=== PATIENT | female | born 1985 | race Caucasian/White ===

== ENCOUNTER 2016-07-27 11:29 | Outpatient (CLI) | payer MEDICAID ==
--- NOTE | 2016-07-27 12:00 | L&D Flow Sheet ---
LD Flowsheet Datetime Report Generated by CPN: 07/27/2016 12:00 Datetime: 07/27/2016 11:43 Vital Signs NBP Sys/Tala/Mean (mmHg): 117 (QS system process) : 75 (QS system process) : 89 (QS system process) Pulse: 103 (QS system process)
--- NOTE | 2016-07-27 12:24 | Non Stress Test Report ---
Non Stress Test Datetime Report Generated by CPN: 07/27/2016 12:24 INDICATION Indication for Study: Diabetes Mellitus Indication for Study: Ordered by Provider MONITORING Monitor Explained: Monitor Explained; Test Explained; Patient Verbalized Understanding Monitor Explained: Monitor Explained; Test Explained; Patient Verbalized Understanding Time on Monitor: 07/27/2016 11:41 Time off Monitor: 07/27/2016 12:07 NST Duration: 26 NST INTERVENTIONS NST Interventions: PO Hydration; Reposition Patient Physician Notified NST: C Salomon CNM BABY A: [id number] BABY A Movement : Present Contraction Frequency : none FHR Baseline : 135 Accelerations : 15X15 Accelerations : 15X15 Decelerations : None Decelerations : None Variability : Moderate 6-25bpm Variability : Moderate 6-25bpm NST Review: Meets Criteria for Reactive NST NST Review and Verified By : D Bellavance RNC NST Results: Reactive NST REPORT Report Trigger: Send Report
== END 2016-07-27 12:13 | disposition home or self-care (01) ==
LOC: LC 11:29
PROVIDERS: ATTEND Obstetrics & Gynecology
PROC: 4A1HXCZ Monitoring of Products of Conception, Cardiac Rate, External Approach (ICD-10-PCS; principal; 2016-07-27)
DX: O24.913 Unspecified diabetes mellitus in pregnancy, third trimester (principal); Z79.4 Long term (current) use of insulin; Z3A.36 36 weeks gestation of pregnancy
CPT/HCPCS: 59025

== ENCOUNTER 2016-07-31 14:08 | Outpatient (CLI) | payer MEDICAID ==
[2016-07-31 14:43] LABS: APPEARANCE,URINE CLOUDY; BILIRUBIN,URINE NEGATIVE (NEGATIVE); GLUCOSE, URINE 50 mg/dL (NEGATIVE); KETONES,URINE TRACE mg/dL (NEGATIVE); LEUKOCYTE ESTERASE,URINE MODERATE (NEGATIVE); NITRITE,URINE NEGATIVE (NEGATIVE); PROTEIN,URINE 30 mg/dL (NEGATIVE); URINE SPECIFIC GRAVITY 1.019; UROBILINOGEN,URINE NEGATIVE mg/dL (<2.0)
[2016-07-31] MEDS ORDERED: BUTALB/ACETAMINOPHEN/CAFFEINE 1 TAB EACH PO ONE (15:01)
[2016-07-31 15:03] LABS: URINE BARBITURATES SCREEN NEGATIVE; URINE METHADONE SCREEN NEGATIVE; URINE OPIATES LOW NEGATIVE; URINE PHENCYCLIDINE SCREEN NEGATIVE
[2016-07-31] MEDS ORDERED: BUTALB/ACETAMINOPHEN/CAFFEINE 1 TAB EACH ONE (15:03)
[2016-07-31 15:04] LABS: ABSOLUTE LYMPHOCYTES (AUTO) 1.4 10^3/uL (0.5-4.7); ABSOLUTE MONOCYTES (AUTO) 0.6 10^3/uL (0.1-1.4); ABSOLUTE NEUT (AUTO) 10.6 10^3/uL (1.7-8.2); BASOPHILS % (AUTO) 0.2 % (0-2); EOSINOPHILS % (AUTO) 0.4 % (0-6); HEMATOCRIT 32.6 % (36.0-47.0); HEMOGLOBIN 10.6 g/dL (12.0-15.5); HGB HCT DIFFERENCE -0.8; LYMPHOCYTES % (AUTO) 11.1 % (13-45); MEAN CORPUSCULAR HEMOGLOBIN 26.2 pg (27.0-33.4); MEAN CORPUSCULAR HGB CONC 32.6 g/dL (32.0-36.0); MEAN CORPUSCULAR VOLUME 80 fl (80-97); MONOCYTES % (AUTO) 4.9 % (3-13); RED BLOOD COUNT 4.07 10^6/uL (3.72-5.28); RED CELL DISTRIBUTION WIDTH 14.8 % (11.5-14.0); SEGMENTED NEUTROPHILS % (AUTO) 83.4 % (42-78); WHITE BLOOD COUNT 12.8 10^3/uL (4.0-10.5)
[2016-07-31 15:17] LABS: ALANINE AMINOTRANSFERASE 26 U/L (9-52); ALBUMIN 3.3 g/dL (3.5-5.0); ALKALINE PHOSPHATASE 164 U/L (38-126); ANION GAP 10 (5-19); ASPARTATE AMINO TRANSFERASE 15 U/L (14-36); BILIRUBIN,TOTAL 0.3 mg/dL (0.2-1.3); BLOOD UREA NITROGEN 6 mg/dL (7-20); CARBON DIOXIDE 19 mmol/L (22-30); CHLORIDE 108 mmol/L (98-107); CREATININE RESULT 0.42 mg/dL (0.52-1.25); GLUCOSE 92 mg/dL (75-110); LDH 429 U/L (313-618); POTASSIUM 4.2 mmol/L (3.6-5.0); SODIUM 136.6 mmol/L (137-145); TOTAL PROTEIN 6.5 g/dL (6.3-8.2); URIC ACID 2.9 mg/dL (2.5-6.2)
--- NOTE | 2016-07-31 16:01 | L&D Flow Sheet ---
LD Flowsheet Datetime Report Generated by CPN: 07/31/2016 16:00 Datetime: 07/31/2016 15:33 Comments: EFM off for discharge to home, see discharge summary (Julia Camp, RNC) Datetime: 07/31/2016 15:30 Monitor Mode: External; Palpation (Julia Camp, RNC) Frequency (min): none (Julia Camp, RNC) Resting Tone (Palpate): Relaxed (Julia Camp, RNC) Monitor Mode: External US; Auscultation (Julia Camp, [facility]) FHR Baseline Rate : 135 ([facility], C) FHR Baseline Changes: No Baseline Change ([facility], [facility]) Variability: Moderate 6-25 bpm ([facility], RNC) Accelerations: 15X15 ([facility], RN) Decelerations: None ([facility], RN) Pain Scale: 1 ([place], RN) [facility] Pain Type: Pressure ([facility], [facility]) Pain Location: Head ([facility], [facility]) Pain Relief Measures: Pain Medication Given; Comfort Measures ([facility], [facility]) Pain Assessment Comments: states slight reduction in headache with po fioricet. States it is still there but slightly better ([facility], [facility]) Communication: Call/Page Placed to Provider ([facility], [facility]) Communication Comments: Phone report to Dr Sim, reviewed reactive efm tracing, vs, all labs. Report of continued mild headache 1 on 0-5 pain scale given. Discharge order received ([facility], [facility]) LaborFlag: Labor (QS system process) Datetime: 07/31/2016 15:19 NBP Sys/Tala/Mean (mmHg): 105 (QS system process) : 58 (QS system process) : 76 (QS system process) Pulse: 81 (QS system process) Respirations: 17 ([facility], [facility]) LaborFlag: Labor (QS system process) Datetime: 07/31/2016 15:10 Medication Comments: Fioricet 1 tab po given for headache (Julia Camp, RNC) Datetime: 07/31/2016 15:04 NBP Sys/Tala/Mean (mmHg): 103 (QS system process) : 59 (QS system process) : 78 (QS system process) Pulse: 90 (QS system process) Respirations: 16 (Julia Camp, RNC) LaborFlag: Labor (QS system process) Datetime: 07/31/2016 15:00 Monitor Mode: External; Palpation (Julia Camp, RNC) Frequency (min): denies (Julia Camp, RNC) Pattern: Normal: <= 5 Contractions in 10 Minutes (Julia Camp, RNC) Resting Tone (Palpate): Relaxed (Julia Camp, RNC) Monitor Mode: External US; Auscultation (Julia Camp, RNC) FHR Baseline Rate : 145 (Julia Camp, RNC) FHR Baseline Changes: No Baseline Change (Julia Camp, RNC) Variability: Moderate 6-25 bpm (Julia Camp, RNC) Accelerations: 15X15 (Julia Camp, RNC) Decelerations: None (Julia Camp, RNC) Datetime: 07/31/2016 14:50 NBP Sys/Tala/Mean (mmHg): 117 (QS system process) : 66 (QS system process) : 86 (QS system process) Pulse: 86 (QS system process) Respirations: 16 (Julia Camp, RNC) LaborFlag: Labor (QS system process) Datetime: 07/31/2016 14:48 Monitor Interventions for FHR: Ultrasound Adjusted (Julia Camp, RNC) IV/Blood Work: Labs Drawn (Julia Camp, RNC) Communication: RN at Bedside (Julia Camp, RNC) Datetime: 07/31/2016 14:35 Patient Position/Activity: HOB Lowered; Left Tilt (Julia Camp, RNC) Datetime: 07/31/2016 14:34 NBP Sys/Tala/Mean (mmHg): 121 (QS system process) : 70 (QS system process) : 90 (QS system process) Pulse: 85 (QS system process) Respirations: 16 (Julia Camp, RNC) LaborFlag: Labor (QS system process) Datetime: 07/31/2016 14:33 Patient Position/Activity: Semi-Fowlers (ALEJANDRO Bundy) I/O Interventions: Clear Liquids Given (ALEJANDRO Bundy) Patient Care Comments: initial b/p taken in semi fowlers position (Julia Allen RNC) Datetime: 07/31/2016 14:32 Instructional Method: Demo; Verbal (ALEJANDRO Bundy) Plan of Care: Plan of Care Discussed (ALEJANDRO Bundy) Unit Routine: [place] to Room; Call [place]; Bed; Monitoring (ALEJANDRO Bundy) Pain Management: Pain Scale/Goals (ALEJANDRO Bundy) Teaching Comments: POC reviewed for preeclampsia evaluation and nst process. Denies questions or concerns. (ALEJANDRO Bundy) Datetime: 07/31/2016 14:28 Pain Scale: 1 (ALEJANDRO Bundy) Pain Presence: Constant (ALEJANDRO Bundy) Pain Type: Dull (Julia Allen RNYousif) Pain Location: Head (Julia Allen RNC) Vaginal Bleeding: None (Julia Allen RNC) Level of Consciousness: Fully Conscious (Julia Allen RNC) DTR's/Clonus: DTRs 2+; No Clonus ([place], [facility]) Headache: Denies (Julia Allen, [facility]) Breath Sounds, Left: Clear and Equal (Julia Alejandro, [facility]) Breath Sounds, Right: Clear and Equal ([facility], [facility]) Nausea/Vomiting: Denies (Julia Allen, [facility]) RUQ Epigastric Pain: Denies (Julia Allen [facility]) LaborFlag: Labor (QS system process)
== END 2016-07-31 15:43 | disposition home or self-care (01) ==
LOC: LC 14:08
PROVIDERS: ATTEND Obstetrics & Gynecology
PROC: 4A1HXCZ Monitoring of Products of Conception, Cardiac Rate, External Approach (ICD-10-PCS; principal; 2016-07-31)
DX: O26.893 Other specified pregnancy related conditions, third trimester (principal); R51 Headache; Z3A.37 37 weeks gestation of pregnancy
CPT/HCPCS: 59025; 36415; 83615; 84550; 85025; 80053; 81001; 80307; J3490

== ENCOUNTER 2016-08-14 09:49 | Inpatient (IN) | payer MEDICAID ==
[2016-08-14] MEDS ORDERED: RINGERS SOLUTION,LACTATED 1,000 ML IV ONE (10:10)
[2016-08-14] MEDS ORDERED: OXYTOCIN/NORMAL SALINE 1,000 ML IV PRN ×2 (10:10→22:54)
[2016-08-14 10:53] LABS: APPEARANCE,URINE CLOUDY; BILIRUBIN,URINE NEGATIVE (NEGATIVE); GLUCOSE, URINE 50 mg/dL (NEGATIVE); KETONES,URINE TRACE mg/dL (NEGATIVE); LEUKOCYTE ESTERASE,URINE LARGE (NEGATIVE); NITRITE,URINE NEGATIVE (NEGATIVE); PROTEIN,URINE 30 mg/dL (NEGATIVE); URINE SPECIFIC GRAVITY 1.023; UROBILINOGEN,URINE NEGATIVE mg/dL (<2.0)
[2016-08-14 11:10] LABS: URINE BARBITURATES SCREEN NEGATIVE; URINE METHADONE SCREEN NEGATIVE; URINE OPIATES LOW NEGATIVE; URINE PHENCYCLIDINE SCREEN NEGATIVE
[2016-08-14 11:18] LABS: ABSOLUTE LYMPHOCYTES (AUTO) 1.2 10^3/uL (0.5-4.7); ABSOLUTE MONOCYTES (AUTO) 0.5 10^3/uL (0.1-1.4); ABSOLUTE NEUT (AUTO) 8.4 10^3/uL (1.7-8.2); BASOPHILS % (AUTO) 0.1 % (0-2); EOSINOPHILS % (AUTO) 0.3 % (0-6); HEMATOCRIT 31.3 % (36.0-47.0); HEMOGLOBIN 10.4 g/dL (12.0-15.5); HGB HCT DIFFERENCE -0.1; LYMPHOCYTES % (AUTO) 11.7 % (13-45); MEAN CORPUSCULAR HEMOGLOBIN 26.4 pg (27.0-33.4); MEAN CORPUSCULAR HGB CONC 33.3 g/dL (32.0-36.0); MEAN CORPUSCULAR VOLUME 79 fl (80-97); MONOCYTES % (AUTO) 4.8 % (3-13); RED BLOOD COUNT 3.95 10^6/uL (3.72-5.28); RED CELL DISTRIBUTION WIDTH 15.3 % (11.5-14.0); SEGMENTED NEUTROPHILS % (AUTO) 83.1 % (42-78); WHITE BLOOD COUNT 10.1 10^3/uL (4.0-10.5)
[2016-08-14] MEDS ORDERED: LIDOCAINE 1% INJ-PF (10 MG/ML) 30 ML SDV ONE (11:36)
[2016-08-14] MEDS ORDERED: MISOPROSTOL 0.2 MG TABLET ONE (11:36)
[2016-08-14] MEDS ORDERED: OXYTOCIN/NORMAL SALINE 20 UNIT/1,000 ML RTUINJ ONE (11:36)
--- NOTE | 2016-08-14 15:26 | L&D Progress Notes ---
PROGRESS NOTES Datetime Report Generated by CPN: 08/14/2016 15:25 PROGRESS NOTE Impression: Reassuring Heart Rate Procedures: Sterile Vag Exam Plan: Continue Present Management; Induction Vital Signs : Reviewed; Within Normal Limits Comment: Asking for epidural, OOB in chair and BR, VE 3-4, 90,vtx,-1, Cat 1 strip VAGINAL EXAM Dilatation: 3 Effacement: 80 FETUS A Decelerations: None : 39.0 SIGNATURE SIGNATURE: [id number] SIGNATURE: [id number] Assignment: Tracy Sim MD Signature: with User ID: Angel : with User ID: Angel
[2016-08-14] MEDS: RINGERS SOLUTION,LACTATED 1,000 ML IV PRN ×2 (15:28→17:46)
[2016-08-14] MEDS ORDERED: PHENYLEPHRINE HCL INJ/PF 10 MG/1 ML SDV ONE (15:39)
[2016-08-14] MEDS ORDERED: EPHEDRINE SULFATE INJ 50 MG/1 ML AMPULE ONE (15:39)
[2016-08-14] MEDS ORDERED: FENTANYL CITRATE INJ/PF 100 MCG/2 ML AMPUL ONE (15:39)
[2016-08-14] MEDS ORDERED: FENTANYL/BUPIVACAINE/NS/PF 200 MCG/100 ML RTUINJ EPI ONE (15:40)
[2016-08-14] MEDS ORDERED: BUPIVACAINE HCL 0.25 % INJ/PF (2.5 MG/1 ML) 30 ML VIAL ONE (15:40)
--- NOTE | 2016-08-14 20:02 | L&D Flow Sheet ---
LD Flowsheet Datetime Report Generated by CPN: 08/14/2016 20:00 Datetime: 08/14/2016 19:49 Comments: Position change (Crystal Miranda, RN) Datetime: 08/14/2016 19:45 NBP Sys/Tala/Mean (mmHg): 124 (QS system process) : 78 (QS system process) : 95 (QS system process) Pulse: 79 (QS system process) Uterine Activity Monitor Mode: External; Palpation (Crystal Bergen, RN) Frequency (min): 1-5 (Crystal Bergen, RN) Quality: Moderate to Strong (Crystal Miranda, RN) Duration (sec): 50-100 (Crystal Miranda, RN) Duration Criteria: Less than Two 120 Second Contractions (Crystal Miranda, RN) Resting Tone (Palpate): Relaxed (Crystal Miranda, RN) Assessment A Monitor Mode: External US (Crystal Bergen, RN) FHR Baseline Rate : 135 (Crystal Bergen, RN) Variability: Moderate 6-25 bpm (Crystal Miranda, RN) Accelerations: 15X15 (Crystal Bergen, RN) Actions for Decelerations: Side to Side (Crystal Bergen, RN) Medications Pitocin (milliunit): Pitocin Remains (milliunits) @ 20 (Crystal Miranda, RN) Patient Position/Activity: Tailors (Crystal Bergen, RN) LaborFlag: Labor (QS system process) Datetime: 08/14/2016 19:41 Vaginal Exam Dilatation (cm): 8.0 (Crystal Miranda, RN) Effacement (%): 90 (Crystal Miranda, RN) Station: 0 (Crystal Bergen, RN) Exam by: Dr. Sim (Crystal Miranda, RN) Cervix, Consistency: Soft (Crystal Miranda, RN) Datetime: 08/14/2016 19:30 NBP Sys/Tala/Mean (mmHg): 113 (QS system process) : 63 (QS system process) : 82 (QS system process) Pulse: 73 (QS system process) Uterine Activity Monitor Mode: External; Palpation (Crystal Miranda, RN) Frequency (min): 2-3 (Crystal Miranda, RN) Quality: Moderate to Strong (Crystal Miranda, RN) Duration (sec): 50-90 (Crystal Miranda, RN) Duration Criteria: Less than Two 120 Second Contractions (Crystal Bergen, RN) Resting Tone (Palpate): Relaxed (Crystal Miranda, RN) Assessment A Monitor Mode: External US (Crystal Miranda, RN) FHR Baseline Rate : 135 (Crystal Miranda, RN) Variability: Moderate 6-25 bpm (Crystal Miranda, RN) Decelerations: Variable (Crystal Miranda, RN) Medications Pitocin (milliunit): Pitocin Remains (milliunits) @ 20 (Crystal Miranda, RN) Patient Position/Activity: Tailors (Crystal Bergen, RN) LaborFlag: Labor (QS system process) Datetime: 08/14/2016 19:22 Temperature (F): 98.2 (Crystal Miranda, RN) Temperature (C): 36.8 (QS system process) LaborFlag: Labor (QS system process) Datetime: 08/14/2016 19:16 NBP Sys/Tala/Mean (mmHg): 112 (QS system process) : 61 (QS system process) : 81 (QS system process) Pulse: 84 (QS system process) Maternal Assessment Level of Consciousness: Fully Conscious (Crystal Miranda, RN) DTR's/Clonus: DTRs 1+; No Clonus (Crystal Miranda, RN) Headache: Denies (Crystal Miranda, RN) Breath Sounds, Left: Clear and Equal (Crystal Miranda, RN) Breath Sounds, Right: Clear and Equal (Crystal Bergen, RN) Nausea/Vomiting: Denies (Crystal Bergen, RN) RUQ Epigastric Pain: Denies (Crystal Bergen, RN) Medications Pitocin (milliunit): Pitocin Remains (milliunits) @ (Annotations: 20) (Crystal Bergen, RN) LaborFlag: Labor (QS system process) Datetime: 08/14/2016 19:15 Uterine Activity Monitor Mode: External; Palpation (Crystal Miranda, RN) Frequency (min): 2-3 (Crystal Miranda, RN) Quality: Moderate to Strong (Crystal Miranda, RN) Duration (sec): 70-100 (Crystal Miranda, RN) Duration Criteria: Less than Two 120 Second Contractions (Crystal Bergen, RN) Resting Tone (Palpate): Relaxed (Crystal Bergen, RN) Assessment A Monitor Mode: External US (Crystal Miranda, RN) FHR Baseline Rate : 140 (Crystal Bergen, RN) Variability: Moderate 6-25 bpm (Crystal Bergen, RN) Decelerations: Early; Variable (Crystal Miranda, RN) Medications Pitocin (milliunit): Pitocin Remains (milliunits) @ 20 (Crystal Bergen, RN) Patient Position/Activity: Tailors (Crystal Miranda, RN) Datetime: 08/14/2016 19:01 NBP Sys/Tala/Mean (mmHg): 120 (QS system process) : 74 (QS system process) : 93 (QS system process) Pulse: 78 (QS system process) LaborFlag: Labor (QS system process) Datetime: 08/14/2016 19:00 Vital Signs Stage of : Labor (Elsie Ortiz RN) Respirations: 18 (Elsie Ortiz RN) Uterine Activity Monitor Mode: External; Palpation (Elsie Ortiz RN) Monitor Interventions for UA: [place] Adjusted (Elsie Ortiz RN) Frequency (min): 2-3 (Elsie Ortiz RN) Quality: Moderate to Strong (Elsie Ortiz RN) Duration (sec): 55-70 (Elsie Ortiz RN) Resting Tone (Palpate): Relaxed (Elsie Ortiz RN) Assessment A Monitor Mode: External US (Elsie Ortiz, [place]) FHR Baseline Rate : 145 (Elsie Ortiz RN) FHR Baseline Changes: No Baseline Change (Elsie Ortiz, [place]) Variability: Moderate 6-25 bpm (Elsie Ortiz, RN) Accelerations: None (Elsie Ortiz, RN) Decelerations: Early; Variable (Elsie Ortiz, [place]) Pain Pain Scale: 0 (Elsie Ortiz, [place]) Pain Presence: Intermittent (Elsie Ortiz, RN) Pain Type: Pressure (Elsie Ortiz, [place]) Pain Location: Perineum (Elsie Ortiz, [place]) Pain Relief Measures: Comfort Measures (Elsie Ortiz, [place]) Pain Coping: Talking Through Contractions (Elsie Ortiz, [place]) Medications Pitocin (milliunit): Pitocin Remains (milliunits) @ 20 (Elsie Ortiz RN) Patient Care IV/Blood Work: IV Infusing per Order (Elsie Ortiz RN) Patient Position/Activity: Tailors (SHARA Worthy Comfort Measures: Family Support (Elsie Ortiz RN) Communication Communication: RN at Bedside; RN Reviewed Strip; Report Given to @ DR SIM @ 1900 (Elsie Ortiz RN) Notification Reason: Status Update; Status; Uterine Activity; Pain (Elsie Cherie Roulund, RN) LaborFlag: Labor (QS system process) Datetime: 08/14/2016 18:47 Vital Signs Stage of : Labor (Elsie Ortiz RN) NBP Sys/Tala/Mean (mmHg): 130 (QS system process) : 67 (QS system process) : 91 (QS system process) Pulse: 80 (QS system process) Respirations: 18 (Elsie Ortiz RN) Uterine Activity Monitor Mode: External; Palpation (Elsie Ortiz RN) Monitor Interventions for UA: [place] Adjusted (Elsie Ortiz RN) Frequency (min): 2-3.5 (Elsie Ortiz RN) Quality: Moderate to Strong (Elsie Ortiz RN) Duration (sec): 55-70 (Elsie Ortiz RN) Resting Tone (Palpate): Relaxed (Elsie Ortiz RN) Assessment A Monitor Mode: External US (Elsie Ortiz RN) Monitor Interventions for FHR: Ultrasound Adjusted (Elsie Ortiz RN) FHR Baseline Rate : 140 (Elsie Ortiz RN) FHR Baseline Changes: No Baseline Change (Elsie Ortiz RN) Variability: Moderate 6-25 bpm (Elsie Ortiz RN) Accelerations: 15X15 (Elsie Ortiz, TAWANA) Decelerations: Early; Variable (Elsie Ortiz RN) Pain Pain Scale: 0 (Elsie Ortiz RN) Pain Presence: Intermittent (Elsie Ortiz RN) Pain Type: Pressure (Elsie Ortiz RN) Pain Location: Perineum (Elsie Ortiz RN) Pain Relief Measures: Comfort Measures (Elsie Ortiz RN) Pain Coping: Talking Through Contractions (Elsie Ortiz RN) Vaginal Exam Dilatation (cm): 6.5 (Elsie Ortiz RN) Effacement (%): 90 (Elsie Ortiz RN) Station: 0 (Elsie Ortiz RN) Exam by: FRANK ORTIZ RN (Elsie Ortiz, [place]) Vaginal Bleeding: Scant (Elsie Ortiz RN) Cervix, Consistency: Soft (Elsie Ortiz RN) Cervix, Position: Anterior (Elsie Ortiz RN) Medications Pitocin (milliunit): Pitocin Remains (milliunits) @ 20 (Elsie Ortiz RN) Patient Care IV/Blood Work: IV Infusing per Order (Elsie Ortiz, RN) Procedures: Sterile Vag Exam (Elsie Ortiz, RN) Patient Position/Activity: Tailors (Elsie Ortiz, RN) Comfort Measures: Family Support (Elsie Ortiz, RN) Communication Communication: RN at Bedside; RN Reviewed Strip (Elsie Ortiz, RN) LaborFlag: Labor (QS system process) Datetime: 08/14/2016 18:30 Vital Signs Stage of : Labor (Elsie Ortiz, TA[place]NA) NBP Sys/Tala/Mean (mmHg): 101 (QS system process) : 54 (QS system process) : 74 (QS system process) Pulse: 92 (QS system process) Respirations: 18 (Elsie Ortiz, TA[place]NA) Uterine Activity Monitor Mode: External (Elsie Ortiz, [place]) Frequency (min): 2-3 (Elsie Ortiz RN) Quality: Moderate to Strong (Elsie Ortiz, TA[place]) Duration (sec): 55-70 (Elsie Ortiz, TA[place]NA) Resting Tone (Palpate): Relaxed (Elsie Ortiz, [place]) Assessment A Monitor Mode: External US (Elsie Ortiz, RN) FHR Baseline Rate : 145 (Elsie Ortiz, RN) FHR Baseline Changes: No Baseline Change (Elsie Ortiz, RN) Variability: Moderate 6-25 bpm (Elsie Ortiz, RN) Accelerations: None (Elsie Cruzluarian, RN) Decelerations: Early; Variable (Elsie Ortiz, RN) Pain Pain Scale: 0 (Elsie Ortiz, RN) Pain Presence: Intermittent (Elsie Cruzluarian, RN) Pain Type: Pressure (Elsie Cruzluarian, RN) Pain Location: Perineum (Elsie Moorevera Cruzluarian, RN) Pain Relief Measures: Comfort Measures (Elsie Cruzluarian, RN) Pain Coping: Talking Through Contractions (Elsie Cruzluarian, RN) Medications Pitocin (milliunit): Pitocin Remains (milliunits) @ 20 (Elsie Cherie Ortiz, RN) Patient Care IV/Blood Work: IV Infusing per Order (Elsie Cruzlund, RN) Patient Position/Activity: Right Lateral; Low Fowlers (Elsie Crespo Roulund, RN) Comfort Measures: Family Support (Elsie Crockettnd, RN) Communication Communication: RN at Bedside; RN Reviewed Strip (Elsie Crespo Roulund, RN) LaborFlag: Labor (QS system process) Datetime: 08/14/2016 18:16 Vital Signs Stage of : Labor (Elsie Ortiz RN) NBP Sys/Tala/Mean (mmHg): 117 (QS system process) : 54 (QS system process) : 74 (QS system process) Pulse: 93 (QS system process) Respirations: 18 (Elsie Ortiz RN) Uterine Activity Monitor Mode: External (Elsie Ortiz RN) Frequency (min): 2-3 (Elsie Ortiz RN) Quality: Moderate to Strong (Elsie Ortiz RN) Duration (sec): 55-70 (Elsie Ortiz RN) Resting Tone (Palpate): Relaxed (Elsie Ortiz RN) Assessment A Monitor Mode: External US (Elsie Cruzlund, RN) FHR Baseline Rate : 145 (Elsie Cherie Roulund, RN) FHR Baseline Changes: No Baseline Change (Elsie Cherie Roulund, RN) Variability: Moderate 6-25 bpm (Elsie Cherie Roulund, RN) Accelerations: None (Elsie Cherie Roulund, RN) Decelerations: Variable (Elsie Cherie Roulund, RN) Pain Relief Measures: Comfort Measures (Elsie Cherie Roulund, RN) Pain Coping: Talking Through Contractions (Elsie Cherie Roulund, RN) Medications Pitocin (milliunit): Pitocin Remains (milliunits) @ 20 (Elsie Cherie Roulund, RN) Patient Care IV/Blood Work: IV Infusing per Order (Elsie Ortiz, RN) Patient Position/Activity: Right Lateral; Low Fowlers (Elsie Ortiz, RN) Comfort Measures: Family Support (Elsie Ortiz, RN) Communication Communication: RN at Bedside; RN Reviewed Strip (Elsie Ortiz, RN) LaborFlag: Labor (QS system process) Datetime: 08/14/2016 18:02 Vital Signs Stage of : Labor (Elsie Ortiz RN) Respirations: 18 (Elsie Ortiz, [place]) Temperature (F): 98.3 (Elsie Ortiz RN) Temperature (C): 36.8 (QS system process) Uterine Activity Monitor Mode: External (Elsie Ortiz RN) Frequency (min): 2-3 (Elsie Ortiz RN) Quality: Moderate (Elsie Ortiz, RN) Duration (sec): 55-70 (Elsie Ortiz, RN) Resting Tone (Palpate): Relaxed (Elsie Ortiz, TA[place]) Assessment A Monitor Mode: External US (Elsie Ortiz RN) FHR Baseline Rate : 145 (Elsie Ortiz RN) FHR Baseline Changes: No Baseline Change (Elsie Ortiz RN) Variability: Moderate 6-25 bpm (Elsie Ortiz RN) Accelerations: None (Elsie Crespo Angel, RN) Decelerations: Early; Variable (Elsie Ortiz, RN) Pain Pain Scale: 0 (Elsie Cherievera Ortiz, TAWANA) Pain Presence: Intermittent (Elsie Ortiz, ) Pain Type: Pressure (Elsie Ortiz, RN) Pain Location: Perineum (Elsie Ortiz, TA[place]) Pain Relief Measures: Comfort Measures (Elsie Ortiz, ) Pain Coping: Talking Through Contractions (Elsie Crespo Angel, ) Medications Pitocin (milliunit): Pitocin Remains (milliunits) @ 20 (Elsie Cruzbertoarian, ) Patient Care IV/Blood Work: IV Infusing per Order (Elsie Ortiz, RN) Patient Position/Activity: Right Lateral; Low Fowlers (Elsie Ortiz, RN) Comfort Measures: Family Support (Elsie Ortiz, RN) Communication Communication: RN at Bedside; RN Reviewed Strip (Elsie Ortiz, RN) LaborFlag: Labor (QS system process) Datetime: 08/14/2016 18:01 NBP Sys/Tala/Mean (mmHg): 96 (QS system process) : 51 (QS system process) : 69 (QS system process) Pulse: 81 (QS system process) LaborFlag: Labor (QS system process) Datetime: 08/14/2016 17:46 Vital Signs Stage of : Labor (Elsie Ortiz RN) NBP Sys/Tala/Mean (mmHg): 106 (QS system process) : 55 (QS system process) : 77 (QS system process) Pulse: 82 (QS system process) Respirations: 18 (Elsie Ortiz RN) Uterine Activity Monitor Mode: External (Elsie Ortiz RN) Monitor Interventions for UA: [place] Adjusted (Elsie Ortiz RN) Frequency (min): 2-3 (Elsie Ortiz RN) Quality: Moderate (Elsie Ortiz RN) Duration (sec): 55-70 (Elsie Ortiz RN) Resting Tone (Palpate): Relaxed (Elsie Ortiz RN) Assessment A Monitor Mode: External US (Elsie Ortiz RN) Monitor Interventions for FHR: Ultrasound Adjusted (Elsie Ortiz RN) FHR Baseline Rate : 130 (Elsie Ortiz RN) FHR Baseline Changes: No Baseline Change (Elsie Ortiz RN) Variability: Moderate 6-25 bpm (Elsie Ortiz RN) Accelerations: None (Elsie Ortiz RN) Decelerations: Variable (Elsie Ortiz RN) Pain Relief Measures: Comfort Measures (Elsie Ortiz RN) Pain Coping: Talking Through Contractions (Elsie Ortiz RN) Medications Pitocin (milliunit): Pitocin Remains (milliunits) @ 20 (Elsie Ortiz RN) Patient Position/Activity: Right Lateral; Low Fowlers (Elsie Ortiz, RN) Comfort Measures: Family Support (Elsie Ortiz, RN) Communication Communication: RN at Bedside; RN Reviewed Strip (Elsie Ortiz, RN) LaborFlag: Labor (QS system process) Datetime: 08/14/2016 17:30 Vital Signs Stage of : Labor (Elsie Ortiz RN) NBP Sys/Tala/Mean (mmHg): 119 (QS system process) : 69 (QS system process) : 87 (QS system process) Pulse: 78 (QS system process) Respirations: 18 (Elsie Ortiz, RN) Uterine Activity Monitor Mode: External (Elsie Ortiz, [place]) Frequency (min): 2-3 (Elsie Ortiz, RN) Quality: Moderate (Elsie Otriz, RN) Duration (sec): 55-70 (Elsie Ortiz, RN) Resting Tone (Palpate): Relaxed (Elsie Ortiz, RN) Assessment A Monitor Mode: External US (Elsie Ortiz, [place]) FHR Baseline Rate : 140 (Elsie Ortiz RN) FHR Baseline Changes: No Baseline Change (Elsie Ortiz RN) Variability: Moderate 6-25 bpm (Elsie Ortiz, RN) Accelerations: 15X15 (Elsie Ortiz, RN) Decelerations: None (Elsie Ortiz RN) Pain Relief Measures: Comfort Measures (Elsie Cherie Roulund, RN) Pain Coping: Talking Through Contractions (Elsie Ortiz, RN) Medications Pitocin (milliunit): Pitocin Remains (milliunits) @ 20 (Elsie Ortiz, RN) Patient Care IV/Blood Work: IV Infusing per Order (Elsie Ortiz, RN) Patient Position/Activity: Left Lateral; Low Fowlers (Elsie Ortiz, TA[place]NA) Comfort Measures: Family Support (Elsie Ortiz, RN) Communication Communication: RN at Bedside; RN Reviewed Strip (Elsie Ortiz, RN) LaborFlag: Labor (QS system process) Datetime: 08/14/2016 17:15 Vital Signs Stage of : Labor (Elsie Ortiz, RN) NBP Sys/Tala/Mean (mmHg): 121 (QS system process) : 64 (QS system process) : 86 (QS system process) Pulse: 77 (QS system process) Respirations: 18 (Elsie Cruzdori, RN) Uterine Activity Monitor Mode: External (Elsie Cherie Roulund, RN) Frequency (min): 2-3 (Elsie Cherie Roulund, RN) Quality: Moderate (Elsie Cherie Roulund, RN) Duration (sec): 55-70 (Elsie Cherie Roulund, RN) Resting Tone (Palpate): Relaxed (Elsie Cherie Roulund, RN) Assessment A Monitor Mode: External US (Elsie Cherie Roulund, RN) FHR Baseline Rate : 140 (Elsie Cherie Roulund, RN) FHR Baseline Changes: No Baseline Change (Elsie Cherie Roulund, RN) Variability: Moderate 6-25 bpm (Elsie Cherie Roulund, RN) Accelerations: 15X15 (Elsie Cherie Roulund, RN) Decelerations: None (Elsie Cherie Roulund, RN) Pain Relief Measures: Comfort Measures (Elsie Cherie Roulund, RN) Pain Coping: Talking Through Contractions (Elsie Cherie Roulund, RN) Medications Pitocin (milliunit): Pitocin Remains (milliunits) @ 20 (Elsie Ortiz, RN) Patient Care IV/Blood Work: IV Infusing per Order (Elsie Ortiz, RN) Comfort Measures: Family Support (Elsie Ortiz, RN) Communication Communication: RN at Bedside; RN Reviewed Strip (Elsie Ortiz, RN) LaborFlag: Labor (QS system process) Datetime: 08/14/2016 17:10 Vital Signs Stage of : Labor (Elsie Ortiz, RN) Communication Communication: Report Given to @ DR SIM (Elsie Ortiz, RN) Notification Reason: Status Update; Status; Uterine Activity; Pain; Other (Elsie Ortiz, RN) Communication Comments: SVE, NO NEW ORDERS (Elsie Ortiz, RN) Datetime: 08/14/2016 17:04 Vital Signs Stage of : Labor (Elsieporfirio Ortiz, RN) Monitor Interventions for UA: [place] Adjusted (Elsieporfirio Ortiz, RN) Communication Communication: RN at Bedside; RN Reviewed Strip (Elsieporfirio Ortiz, RN) Datetime: 08/14/2016 17:00 Vital Signs Stage of : Labor (Elsie Ortiz RN) NBP Sys/Tala/Mean (mmHg): 122 (QS system process) : 60 (QS system process) : 85 (QS system process) Pulse: 81 (QS system process) Respirations: 18 (Elsie Ortiz, TA[place]) Uterine Activity Monitor Mode: External (Elsie Ortiz RN) Monitor Interventions for UA: [place] Adjusted (Elsie Ortiz RN) Frequency (min): 2-3 (Elsie Ortiz RN) Quality: Moderate (Elsie Ortiz RN) Duration (sec): 55-70 (Elsie Ortiz RN) Resting Tone (Palpate): Relaxed (Elsie Ortiz, TA[place]) Assessment A Monitor Mode: External US (Elsie Mooren Roulund, RN) FHR Baseline Rate : 140 (Elsie Mooren Roulund, RN) FHR Baseline Changes: No Baseline Change (Elsie Cruzlund, RN) Variability: Moderate 6-25 bpm (Elsie Crespo Roulund, RN) Accelerations: 15X15 (Elsie Cherie Roulund, RN) Decelerations: None (Elsie Cruzlund, RN) Pain Pain Scale: 0 (Elsie Crespo Roulund, RN) Pain Presence: None/Denies (Elsie Mooren Roulund, RN) Pain Type: N/A (Elsie Cherie Roulund, RN) Pain Relief Measures: Comfort Measures (Elsie Mooren Roulund, RN) Pain Coping: Talking Through Contractions (Elsie Cruzlund, RN) Medications Pitocin (milliunit): Pitocin Remains (milliunits) @ 20 (Elsie rCuzlund, RN) Patient Care IV/Blood Work: IV Infusing per Order (Elsie Ortiz, RN) Patient Position/Activity: Left Lateral; Low Fowlers (Elsie Ortiz, RN) Communication Communication: RN at Bedside; RN Reviewed Strip (Elsie Cherie Roulund, RN) LaborFlag: Labor (QS system process) Datetime: 08/14/2016 16:57 NBP Sys/Tala/Mean (mmHg): 127 (QS system process) : 69 (QS system process) : 91 (QS system process) Pulse: 82 (QS system process) LaborFlag: Labor (QS system process) Datetime: 08/14/2016 16:52 NBP Sys/Tala/Mean (mmHg): 133 (QS system process) : 70 (QS system process) : 96 (QS system process) Pulse: 81 (QS system process) LaborFlag: Labor (QS system process) Datetime: 08/14/2016 16:50 Vital Signs Stage of : Labor (Elsie Ortiz, RN) Vaginal Exam Dilatation (cm): 4.5 (Elsie Ortiz RN) Effacement (%): 90 (Elsie Ortiz RN) Station: 0 (Elsie Ortiz RN) Exam by: FRANK ORTIZ RN (Elsie Ortiz RN) Vaginal Bleeding: None (Elsie Ortiz RN) Cervix, Consistency: Soft (Elsie Ortiz RN) Cervix, Position: Anterior (Elsie Ortiz RN) Procedures: Sterile Vag Exam (Elsie Ortiz RN) Communication Communication: RN at Bedside; RN Reviewed Strip (Elsie Ortiz RN) Datetime: 08/14/2016 16:47 NBP Sys/Tala/Mean (mmHg): 127 (QS system process) : 70 (QS system process) : 91 (QS system process) Pulse: 83 (QS system process) LaborFlag: Labor (QS system process) Datetime: 08/14/2016 16:44 Vital Signs Stage of : Labor (Elsie Cherie Roulund, RN) Respirations: 18 (Elsie Cherie Roulund, RN) Uterine Activity Monitor Mode: External (Elsie Cruzlund, RN) Monitor Interventions for UA: [place] Adjusted (Elsie Crespo Roulund, RN) Frequency (min): 2-3 (Elsie Cherie Roulund, RN) Quality: Moderate (Elsie Crespo Roulund, RN) Duration (sec): 50-70 (Elsie Cherie Roulund, RN) Resting Tone (Palpate): Relaxed (Elsie Crespo Roulund, RN) Assessment A Monitor Mode: External US (Elsie Cruzlund, RN) FHR Baseline Rate : 130 (Elsie Crespo Roulund, RN) FHR Baseline Changes: No Baseline Change (Elsie Cherie Roulund, RN) Variability: Moderate 6-25 bpm (Elsie Cherie Roulund, RN) Accelerations: None (Elsie Cherie Roulund, RN) Decelerations: Early (Elsie Cherie Roulund, RN) Pain Relief Measures: Comfort Measures (lEsie Crespo Roulund, RN) Pain Coping: Talking Through Contractions (Elsieporfirio Crespo Roulund, RN) Medications Pitocin (milliunit): Pitocin Remains (milliunits) @ 20 (Elsie Crockettnd, RN) Patient Care IV/Blood Work: IV Infusing per Order (Elsie Ortiz, RN) Patient Position/Activity: Left Tilt; Low Fowlers (Elsie Ortiz, RN) Communication Communication: RN at Bedside; RN Reviewed Strip (Elsie Ortiz, RN) LaborFlag: Labor (QS system process) Datetime: 08/14/2016 16:42 NBP Sys/Tala/Mean (mmHg): 128 (QS system process) : 61 (QS system process) : 85 (QS system process) Pulse: 78 (QS system process) LaborFlag: Labor (QS system process) Datetime: 08/14/2016 16:37 NBP Sys/Tala/Mean (mmHg): 142 (QS system process) : 65 (QS system process) : 93 (QS system process) Pulse: 82 (QS system process) LaborFlag: Labor (QS system process) Datetime: 08/14/2016 16:34 Vital Signs Stage of : Labor (Elsie Cherie Ortiz, RN) Monitor Interventions for UA: [place] Adjusted (Elsie Ortiz, RN) Monitor Interventions for FHR: Ultrasound Adjusted (Elsie Mooren Anthonydori, RN) Communication Communication: RN at Bedside; RN Reviewed Strip (Elsie Mooren Angel, RN) Datetime: 08/14/2016 16:32 NBP Sys/Tala/Mean (mmHg): 145 (QS system process) : 56 (QS system process) : 81 (QS system process) Pulse: 81 (QS system process) LaborFlag: Labor (QS system process) Datetime: 08/14/2016 16:30 NBP Sys/Tala/Mean (mmHg): 101 (QS system process) : 52 (QS system process) : 75 (QS system process) Pulse: 90 (QS system process) Pain Pain Scale: 0 (Elsie Ortiz RN) Pain Presence: None/Denies (Elsie Ortiz RN) Pain Type: N/A (Elsie Ortiz RN) Pain Relief Measures: Comfort Measures (Elsie Ortiz RN) Pain Coping: Talking Through Contractions (Elsie Ortiz RN) LaborFlag: Labor (QS system process) Datetime: 08/14/2016 16:29 NBP Sys/Tala/Mean (mmHg): 118 (QS system process) : 56 (QS system process) : 81 (QS system process) Pulse: 78 (QS system process) Anesthesia Level Check: T9 (Elsie Mooren Bonarian, RN) LaborFlag: Labor (QS system process) Datetime: 08/14/2016 16:28 NBP Sys/Tala/Mean (mmHg): 118 (QS system process) : 56 (QS system process) : 81 (QS system process) Pulse: 74 (QS system process) LaborFlag: Labor (QS system process) Datetime: 08/14/2016 16:27 Vital Signs Stage of : Labor (Elsie Ortiz RN) NBP Sys/Tala/Mean (mmHg): 133 (QS system process) : 60 (QS system process) : 87 (QS system process) Pulse: 74 (QS system process) Patient Position/Activity: Low Fowlers (Elsie Ortiz RN) I/O Interventions: [place] Cath Inserted (Elsie Ortiz RN) Communication Communication: RN at Bedside; RN Reviewed Strip (Elsie Ortiz RN) LaborFlag: Labor (QS system process) Datetime: 08/14/2016 16:26 NBP Sys/Tala/Mean (mmHg): 130 (QS system process) : 57 (QS system process) : 82 (QS system process) Pulse: 82 (QS system process) LaborFlag: Labor (QS system process) Datetime: 08/14/2016 16:24 NBP Sys/Tala/Mean (mmHg): 118 (QS system process) : 56 (QS system process) : 80 (QS system process) Pulse: 78 (QS system process) LaborFlag: Labor (QS system process) Datetime: 08/14/2016 16:22 NBP Sys/Tala/Mean (mmHg): 123 (QS system process) : 72 (QS system process) : 92 (QS system process) Pulse: 90 (QS system process) LaborFlag: Labor (QS system process) Datetime: 08/14/2016 16:21 NBP Sys/Tala/Mean (mmHg): 118 (QS system process) : 70 (QS system process) : 89 (QS system process) Pulse: 81 (QS system process) Epidural Procedure Other: Pump Started (Elsie Ortiz RN) LaborFlag: Labor (QS system process) Datetime: 08/14/2016 16:20 NBP Sys/Tala/Mean (mmHg): 144 (QS system process) : 71 (QS system process) : 98 (QS system process) Pulse: 80 (QS system process) Pulse: 85 (QS system process) SpO2 (%): 100 (QS system process) LaborFlag: Labor (QS system process) Datetime: 08/14/2016 16:19 NBP Sys/Tala/Mean (mmHg): 123 (QS system process) : 74 (QS system process) : 93 (QS system process) Pulse: 98 (QS system process) LaborFlag: Labor (QS system process) Datetime: 08/14/2016 16:17 NBP Sys/Tala/Mean (mmHg): 139 (QS system process) : 86 (QS system process) : 108 (QS system process) Pulse: 97 (QS system process) LaborFlag: Labor (QS system process) Datetime: 08/14/2016 16:16 NBP Sys/Tala/Mean (mmHg): 136 (QS system process) : 86 (QS system process) : 104 (QS system process) Pulse: 89 (QS system process) Epidural Procedure: Loading Dose (Elsie Ortiz RN) LaborFlag: Labor (QS system process) Datetime: 08/14/2016 16:15 NBP Sys/Tala/Mean (mmHg): 137 (QS system process) : 86 (QS system process) : 105 (QS system process) Pulse: 92 (QS system process) Pulse: 97 (QS system process) SpO2 (%): 99 (QS system process) LaborFlag: Labor (QS system process) Datetime: 08/14/2016 16:14 Vital Signs Stage of : Labor (Elsie Ortiz RN) NBP Sys/Tala/Mean (mmHg): 146 (QS system process) : 83 (QS system process) : 106 (QS system process) Pulse: 80 (QS system process) FHR Baseline Changes: Unable to Determine (Elsie Ortiz RN) Comments: PT SITTING UP FOR EPIDURAL (Elsie Ortiz RN) Epidural Procedure: Cath Placed (Elsie Ortiz RN) Communication Communication: RN at Bedside; RN Reviewed Strip (Elsie Cruzbertoarian, RN) LaborFlag: Labor (QS system process) Datetime: 08/14/2016 16:13 Epidural Procedure: Test Dose (Elsie Cherie Crockettnd, RN) Datetime: 08/14/2016 16:10 Pulse: 99 (QS system process) SpO2 (%): 99 (QS system process) LaborFlag: Labor (QS system process) Datetime: 08/14/2016 16:07 Vital Signs Stage of : Labor (Elsie Ortiz RN) Procedure Verify: Correct Patient Identity; Correct Side and Site are Marked; Accurate Procedure Consent Form; Agreement on Procedure to be Done; Correct Patient Position; Relevant Images and Results are Properly Labeled and Displayed (Elsie Ortiz RN) Anesthesia Anesthesia Plans: Epidural (Elsie Ortiz RN) Epidural Positioning: Sitting (Elsie Ortiz RN) Anesthesia Comments: dr klein @ bs (Elsie Ortiz, RN) Communication Communication: RN at Bedside; Provider at Bedside (Elsie Ortiz, TAWANA) Datetime: 08/14/2016 16:06 NBP Sys/Tala/Mean (mmHg): 145 (QS system process) : 67 (QS system process) : 97 (QS system process) Pulse: 99 (QS system process) LaborFlag: Labor (QS system process) Datetime: 08/14/2016 16:05 Pulse: 105 (QS system process) Pulse: 128 (QS system process) SpO2 (%): 99 (QS system process) SpO2 (%): 87 (QS system process) LaborFlag: Labor (QS system process) Datetime: 08/14/2016 16:00 Vital Signs Stage of : Labor (Elsie Ortiz RN) Respirations: 20 (Elsie Ortiz RN) Uterine Activity Monitor Mode: External (Elsie Ortiz RN) Frequency (min): 1.5-3.5 (Elsie Ortiz RN) Quality: Moderate (Elsie Ortiz RN) Duration (sec): 55-70 (Elsie Cherie Roulund, RN) Resting Tone (Palpate): Relaxed (Elsie Ortiz, RN) Assessment A Monitor Mode: External US (Elsie Ortiz, RN) FHR Baseline Rate : 140 (Elsie Ortiz, RN) FHR Baseline Changes: No Baseline Change (Elsie Ortiz, RN) Variability: Moderate 6-25 bpm (Elsie Ortiz, RN) Accelerations: 15X15 (Elsie Ortiz, RN) Decelerations: None (Elsie Ortiz, RN) Pain Pain Scale: 4 (Elsie Ortiz, RN) Pain Presence: Intermittent (Elsie Ortiz, RN) Pain Type: Contraction (Elsie Ortiz, RN) Pain Location: Abdomen (Elsie Ortiz, RN) Pain Relief Measures: Comfort Measures (Elsie Ortiz, RN) Pain Coping: Breathing Through Contractions (Elsie Ortiz, RN) Medications Pitocin (milliunit): Pitocin Remains (milliunits) @ 20 (Elsie Ortiz, RN) Patient Position/Activity: Right Lateral; Low Fowlers (Elsie Ortiz RN) Comfort Measures: Family Support (Elsie Ortiz, TAWANA) Procedure TIME OUT Procedure Type: EPIDURAL (Elsie Ortiz, RN) Procedure Verify: Correct Patient Identity; Agreement on Procedure to be Done (Elsie Ortiz, RN) Anesthesia Anesthesia Plans: Epidural (Elsie Cherie Roulund, RN) Anesthesia Comments: DR KNIGHTSHEAD NOTIFIED OF EPIDURAL REQUEST- WILL BE UP SHORTLY (Elsie Ortiz, RN) Communication Communication: RN at Bedside; RN Reviewed Strip (Elsie Ortiz, RN) LaborFlag: Labor (QS system process) Datetime: 08/14/2016 15:45 Vital Signs Stage of : Labor (Elsie Ortiz, RN) Respirations: 20 (Elsie Ortiz, RN) Uterine Activity Monitor Mode: External (Elsie Ortiz RN) Monitor Interventions for UA: [place] Adjusted (Elsie Ortiz RN) Frequency (min): 2-4 (Elsie Ortiz RN) Quality: Moderate (Elsie Ortiz RN) Duration (sec): 55-70 (Elsie Ortiz RN) Resting Tone (Palpate): Relaxed (Elsie Ortiz RN) Assessment A Monitor Mode: External US (Elsie Ortiz RN) FHR Baseline Rate : 135 (Elsie Ortiz RN) FHR Baseline Changes: No Baseline Change (Elsie Ortiz RN) Variability: Moderate 6-25 bpm (Elsie Ortiz RN) Accelerations: 15X15 (Elsie Ortiz RN) Decelerations: None (Elsie Ortiz RN) Pain Relief Measures: Comfort Measures (Elsie Ortiz RN) Pain Coping: Breathing Through Contractions (Elsie Cherie Roulund, RN) Medications Pitocin (milliunit): Pitocin Remains (milliunits) @ 20 (Elsie Ortiz, RN) Patient Position/Activity: Right Tilt; Low Fowlers (Elsie Ortiz, RN) Comfort Measures: Family Support (Elsie Ortiz, RN) Communication Communication: RN at Bedside; RN Reviewed Strip (Elsie Crockettnd, RN) LaborFlag: Labor (QS system process) Datetime: 08/14/2016 15:34 NBP Sys/Tala/Mean (mmHg): 113 (QS system process) : 58 (QS system process) : 78 (QS system process) Pulse: 73 (QS system process) LaborFlag: Labor (QS system process) Datetime: 08/14/2016 15:30 Vital Signs Stage of : Labor (Elsie Ortiz, RN) Respirations: 20 (Elsie Ortiz, TAWANA) Uterine Activity Monitor Mode: External (Elsie Ortiz RN) Monitor Interventions for UA: [place] Adjusted (Elsie Ortiz RN) Frequency (min): 2-3 (Elsie Ortiz RN) Quality: Moderate (Elsie Ortiz RN) Duration (sec): 60-70 (Elsie Ortiz RN) Resting Tone (Palpate): Relaxed (Elsie Ortiz RN) Assessment A Monitor Mode: External US (Elsie Ortiz RN) FHR Baseline Rate : 135 (Elsie Ortiz RN) FHR Baseline Changes: No Baseline Change (Elsie Ortiz RN) Variability: Moderate 6-25 bpm (Elsie Ortiz RN) Accelerations: 15X15 (Elsie Ortiz RN) Decelerations: None (Elsie Ortiz RN) Pain Relief Measures: Comfort Measures (Elsie Ortiz RN) Pain Coping: Breathing Through Contractions (Elsie Ortiz RN) Medications Pitocin (milliunit): Pitocin Remains (milliunits) @ 20 (Elsie Ortiz, RN) Patient Position/Activity: Right Tilt; Low Fowlers (Elsie Ortiz, RN) Comfort Measures: Family Support (Elsie Ortiz, RN) Communication Communication: RN at Bedside; RN Reviewed Strip (Elsie Ortiz, RN) LaborFlag: Labor (QS system process) Datetime: 08/14/2016:23 Vital Signs Stage of : Labor (Elsieporfirio Ortiz, RN) Patient Care IV/Blood Work: New IV Bag Hung (Elsieporfirio Ortiz, RN) Communication Communication: RN at Bedside (Elsieporfirio Ortiz, RN) Datetime: 08/14/2016 15:21 Vital Signs Stage of : Labor (Elsie Ortiz, TAWANA) Vaginal Exam Dilatation (cm): 3.5 (Elsie Ortiz RN) Effacement (%): 90 (Elsie Ortiz RN) Station: 0 (Elsie Ortiz RN) Exam by: Tamie RIVAS CNM (Elsie Ortiz RN) Vaginal Bleeding: None (Elsie Ortiz RN) Cervix, Consistency: Soft (Elsie Ortiz RN) Cervix, Position: Anterior (Elsie Ortiz RN) Procedures: Sterile Vag Exam (Elsie Ortiz RN) I/O Interventions: Up to BR (Elsie Ortzi RN) Communication Communication: Provider Orders Received (Elsie Ortiz, RN) Communication Communication: RN at Bedside; RN Reviewed Strip; Provider at Bedside (Elsie Ortiz RN) Communication Comments: ORDERS FOR EPIDURAL OBTAINED (Elsie Ortiz, RN) Datetime: 08/14/2016 15:17 Vital Signs Stage of : Labor (Elsie Ortiz, TAWANA) Respirations: 20 (Elsie Ortiz RN) Uterine Activity Monitor Mode: External (Elsie Ortiz RN) Monitor Interventions for UA: [place] Adjusted (Elsie Ortiz RN) Frequency (min): 2.5-3 (Elsie Ortiz RN) Quality: Moderate (Elsie Ortiz RN) Duration (sec): 60-70 (Elsie Ortiz RN) Resting Tone (Palpate): Relaxed (Elsie Ortiz RN) Assessment A Monitor Mode: External US (Elsie Ortiz RN) Monitor Interventions for FHR: Ultrasound Adjusted (Elsie Ortiz RN) FHR Baseline Rate : 140 (Elsie Ortiz RN) FHR Baseline Changes: No Baseline Change (Elsie Ortiz RN) Variability: Moderate 6-25 bpm (Elsie Ortiz RN) Accelerations: 15X15 (Elsie Ortiz RN) Decelerations: None (Elsie Cherie Roulund, RN) Pain Pain Scale: 3 (Elsie Ortiz, TAWANA) Pain Presence: Intermittent (Elsie Ortiz RN) Pain Type: Contraction (Elsie Ortiz RN) Pain Location: Abdomen (Elise Ortiz, TAWANA) Pain Relief Measures: Comfort Measures (Elsie Ortiz, TAWANA) Pain Coping: Breathing Through Contractions; Requesting Pain Medication or Epidural (Elsie Ortiz, TAWANA) Medications Pitocin (milliunit): Pitocin Remains (milliunits) @ 20 (Elsie Mooren Anthonydori, RN) Patient Care IV/Blood Work: IV Bolus Started (Elsie Ortiz, RN) Comfort Measures: Rocking Chair; Family Support (Elsie Ortiz, RN) Procedure TIME OUT Procedure Type: EPIDURAL (Elsie Ortiz, RN) Procedure Verify: Correct Patient Identity; Agreement on Procedure to be Done; Relevant Images and Results are Properly Labeled and Displayed (Elsie Ortiz, RN) Anesthesia Anesthesia Plans: Epidural (Elsie Ortiz, RN) Teaching Instructional Method: Verbal; Patient Instructed; Family/Support Person Instructed; Verbalized Understanding (Elsie Ortiz RN) Plan of Care: Labor (Elsie Ortiz RN) Labor/Induction: Labor Stages (Elsie Ortiz RN) Pain Management: Epidural; Pain Scale/Goals; Comfort Measures (Elsie Ortiz RN) Communication Communication: RN at Bedside; RN Reviewed Strip (Elsie Ortiz RN) LaborFlag: Labor (QS system process) Datetime: 08/14/2016 15:05 NBP Sys/Atla/Mean (mmHg): 122 (QS system process) : 72 (QS system process) : 92 (QS system process) Pulse: 78 (QS system process) LaborFlag: Labor (QS system process) Datetime: 08/14/2016 15:00 Vital Signs Stage of : Labor (Elsie Ortiz RN) Respirations: 18 (Elsie Ortiz RN) Uterine Activity Monitor Mode: External (Elsie Ortiz RN) Monitor Interventions for UA: [place] Adjusted (Elsie Ortiz RN) Frequency (min): 2-3 (Elsie Ortiz RN) Quality: Mild/Moderate (Elsie Ortiz RN) Duration (sec): 55-70 (Elsie Ortiz RN) Resting Tone (Palpate): Relaxed (Elsie Ortiz RN) Assessment A Monitor Mode: External US (Elsie Ortiz RN) Monitor Interventions for FHR: Ultrasound Adjusted (Elsie Ortiz RN) FHR Baseline Rate : 145 (Elsie Ortiz RN) FHR Baseline Changes: No Baseline Change (Elsie Ortiz RN) Variability: Moderate 6-25 bpm (Elsie Ortiz RN) Accelerations: None (Elsie Ortiz RN) Decelerations: None (Elsie Ortiz RN) Pain Pain Scale: 2 (Elsie Ortiz RN) Pain Presence: Intermittent (Elsie Ortiz RN) Pain Type: Cramping; Contraction (Elsie Ortiz RN) Pain Location: Abdomen (Elsie Ortiz RN) Pain Relief Measures: Comfort Measures (Elsie Ortiz RN) Pain Coping: Breathing Through Contractions (Elsie Ortiz RN) Medications Pitocin (milliunit): Pitocin Remains (milliunits) @ 20 (Elsie Ortiz, RN) Patient Care IV/Blood Work: IV Infusing per Order (Elsie Ortiz, RN) Comfort Measures: Rocking Chair; Family Support (Elsie Ortiz, RN) Communication Communication: RN at Bedside; RN Reviewed Strip (Elsie Ortiz, RN) LaborFlag: Labor (QS system process) Datetime: 08/14/2016 14:45 Vital Signs Stage of : Labor (Elsie Ortiz, RN) Respirations: 18 (Elsie Ortiz, RN) Uterine Activity Monitor Mode: External (Elsie Ortiz RN) Frequency (min): 1-3 (Elsie Ortiz, RN) Quality: Mild/Moderate (Elsie Ortiz, RN) Resting Tone (Palpate): Relaxed (Elsie Ortiz, RN) Assessment A Monitor Mode: External US (Elsie Ortiz RN) Monitor Interventions for FHR: Ultrasound Adjusted (Elsie Ortiz RN) FHR Baseline Rate : 140 (Elsie Ortiz RN) FHR Baseline Changes: No Baseline Change (Elsie Ortiz RN) Variability: Moderate 6-25 bpm (Elsie Ortiz RN) Accelerations: 10X10 (Elsie Ortiz RN) Decelerations: None (Elsie Ortiz RN) Pain Relief Measures: Comfort Measures (Elsie Ortiz RN) Pain Coping: Breathing Through Contractions (Elsie Ortiz, TAWANA) Medications Pitocin (milliunit): Pitocin Remains (milliunits) @ 20 (Elsie Ortiz RN) Patient Care IV/Blood Work: IV Infusing per Order (Elsie Ortiz, RN) Comfort Measures: Rocking Chair; Family Support (Elsie Ortiz, RN) Communication Communication: RN at Bedside; RN Reviewed Strip (Elsie Ortiz, RN) LaborFlag: Labor (QS system process) Datetime: 08/14/2016 14:35 NBP Sys/Tala/Mean (mmHg): 130 (QS system process) : 75 (QS system process) : 97 (QS system process) Pulse: 70 (QS system process) LaborFlag: Labor (QS system process) Datetime: 08/14/2016 14:30 Vital Signs Stage of : Labor (Elsie Ortiz RN) Respirations: 18 (Elsie Ortiz RN) Uterine Activity Monitor Mode: External (Elsie Ortiz RN) Monitor Interventions for UA: [place] Adjusted (Elsie Ortiz RN) Frequency (min): 2.5-3.5 (Elsie Ortiz RN) Quality: Mild/Moderate (Elsie Ortiz RN) Duration (sec): 55-65 (Elsie Ortiz RN) Resting Tone (Palpate): Relaxed (Elsie Ortiz RN) Assessment A Monitor Mode: External US (Elsie Ortiz RN) Monitor Interventions for FHR: Ultrasound Adjusted (Elsie Ortiz RN) FHR Baseline Rate : 135 (Elsie Ortiz RN) FHR Baseline Changes: No Baseline Change (Elsie Ortiz RN) Variability: Moderate 6-25 bpm (Elsie Ortiz RN) Accelerations: 15X15 (Elsie Ortiz RN) Decelerations: None (Elsie Ortiz RN) Pain Pain Scale: 1 (Elsie Ortiz RN) Pain Presence: Intermittent (Elsie Ortiz RN) Pain Type: Cramping (Elsie Ortiz RN) Pain Location: Abdomen (Elsie Ortiz RN) Pain Relief Measures: Comfort Measures (Elsie Ortiz RN) Pain Coping: Talking Through Contractions (Elsie Ortiz RN) Medications Pitocin (milliunit): Pitocin Increased to (milliunits) @ 20 (Elsie Ortiz, RN) Patient Care IV/Blood Work: IV Infusing per Order (Elsie Ortiz, RN) Comfort Measures: Rocking Chair; Family Support (Elsie Ortiz, RN) Communication Communication: RN at Bedside; RN Reviewed Strip (Elsie Ortiz, RN) LaborFlag: Labor (QS system process) Datetime: 08/14/2016 14:22 Vital Signs Stage of : Labor (Elsie Ortiz, RN) Monitor Interventions for UA: [place] Adjusted (Elsie Ortiz, RN) Monitor Interventions for FHR: Ultrasound Adjusted (Elsie Ortiz, RN) Communication Communication: RN at Bedside; RN Reviewed Strip (Elsie Ortiz, RN) Datetime: 08/14/2016 14:15 Vital Signs Stage of : Labor (Elsie Ortiz RN) Respirations: 18 (Elsie Ortiz RN) Uterine Activity Monitor Mode: External (Elsie Ortiz RN) Monitor Interventions for UA: [place] Adjusted (Elsie Ortiz RN) Frequency (min): 2.5-4 (Elsie Ortiz RN) Quality: Mild/Moderate (Elsie Ortiz RN) Duration (sec): 55-70 (Elsie Ortiz RN) Resting Tone (Palpate): Relaxed (Elsie Cherie Roulund, RN) Assessment A Monitor Mode: External US (Elsie Ortiz, RN) FHR Baseline Rate : 135 (Elsie Ortiz RN) FHR Baseline Changes: No Baseline Change (Elsie Ortiz, RN) Variability: Moderate 6-25 bpm (Elsie Ortiz, RN) Accelerations: None (Elsie Ortiz, RN) Decelerations: None (Elsie Ortiz, TAWANA) Pain Relief Measures: Comfort Measures (Elsie Ortiz, TAWANA) Pain Coping: Talking Through Contractions (Elsie Ortiz, RN) Medications Pitocin (milliunit): Pitocin Increased to (milliunits) @ 18 (Elsie Ortiz, TAWANA) Patient Care IV/Blood Work: IV Infusing per Order (Elsie Crockettnd, RN) Comfort Measures: Rocking Chair; Family Support (Elsie Ortiz, RN) Communication Communication: RN at Bedside; RN Reviewed Strip (Elsie Crockettnd, RN) LaborFlag: Labor (QS system process) Datetime: 08/14/2016 14:04 NBP Sys/Tala/Mean (mmHg): 138 (QS system process) : 68 (QS system process) : 93 (QS system process) Pulse: 68 (QS system process) LaborFlag: Labor (QS system process) Datetime: 08/14/2016 14:00 Vital Signs Stage of : Labor (Elsie Ortiz RN) Respirations: 18 (Elsie Ortiz RN) Temperature (F): 98.1 (Elsie Ortiz RN) Temperature (C): 36.7 (QS system process) Uterine Activity Monitor Mode: External (Elsie Ortiz RN) Monitor Interventions for UA: [place] Adjusted (Elsie Ortiz RN) Frequency (min): 2.5-4 (Elsie Ortiz RN) Quality: Mild/Moderate (Elsie Cherie Roulund, RN) Duration (sec): 40-70 (Elsie Ortiz, RN) Resting Tone (Palpate): Relaxed (Elsie Ortiz, RN) Assessment A Monitor Mode: External US (Elsie Ortiz, RN) FHR Baseline Rate : 145 (Elsie Ortiz, RN) FHR Baseline Changes: No Baseline Change (Elsie Ortiz, RN) Variability: Moderate 6-25 bpm (Elsie Ortiz, RN) Accelerations: 15X15 (Elsie Ortiz, RN) Decelerations: Variable (Elsie Ortiz, RN) Pain Pain Scale: 1 (Elsie Ortiz RN) Pain Presence: Intermittent (Elsie Ortiz, RN) Pain Type: Cramping (Elsie Ortiz, RN) Pain Location: Abdomen (Elsie Ortiz, RN) Pain Relief Measures: Comfort Measures (Elsie Ortiz RN) Pain Coping: Talking Through Contractions (Elsie Cherie Roulund, RN) Medications Pitocin (milliunit): Pitocin Increased to (milliunits) @ 16 (Elsie Ortiz, RN) Patient Care IV/Blood Work: IV Infusing per Order (Elsie Ortiz, RN) Comfort Measures: Rocking Chair; Family Support (Elsie Ortiz, RN) Communication Communication: RN at Bedside; RN Reviewed Strip (Elsie Ortiz, RN) LaborFlag: Labor (QS system process) Datetime: 08/14/2016 13:45 Vital Signs Stage of : Labor (Elsie Ortiz RN) Uterine Activity Monitor Mode: External (Elsie Ortiz RN) Monitor Interventions for UA: [place] Adjusted (Elsie Ortiz RN) Frequency (min): 4-5 (Elsie Ortiz RN) Quality: Mild (Elsie Oritz RN) Duration (sec): 60-70 (Elsie Cherie Roulund, RN) Resting Tone (Palpate): Relaxed (Elsie Ortiz, RN) Assessment A Monitor Mode: External US (Elsie Ortiz, RN) FHR Baseline Rate : 135 (Elsie Ortiz, RN) FHR Baseline Changes: No Baseline Change (Elsie Ortiz, RN) Variability: Moderate 6-25 bpm (Elsie Ortiz, RN) Accelerations: 15X15 (Elsie Ortiz, RN) Decelerations: None (Elsie Ortiz, RN) Pain Relief Measures: Comfort Measures (Elsie Ortiz, RN) Pain Coping: Talking Through Contractions (Elsie Ortiz, RN) Medications Pitocin (milliunit): Pitocin Increased to (milliunits) @ 14 (Elsie Ortiz, RN) Patient Care IV/Blood Work: IV Infusing per Order (Elsie Moorevera Ortiz, RN) Comfort Measures: Rocking Chair (Elsie Mooren Anthonydori, RN) Communication Communication: RN at Bedside; RN Reviewed Strip (Elsie Moorevera Ortiz, RN) LaborFlag: Labor (QS system process) Datetime: 08/14/2016 13:34 NBP Sys/Tala/Mean (mmHg): 130 (QS system process) : 67 (QS system process) : 90 (QS system process) Pulse: 71 (QS system process) LaborFlag: Labor (QS system process) Datetime: 08/14/2016 13:30 Vital Signs Stage of : Labor (Elsie Ortiz RN) Respirations: 18 (Elsie Ortiz RN) Uterine Activity Monitor Mode: External (Elsie Ortiz RN) Monitor Interventions for UA: [place] Adjusted (Elsie Ortiz RN) Frequency (min): 2-4 (Elsie Ortiz RN) Quality: Mild (Elsie Ortiz RN) Duration (sec): 55-70 (Elsie Cherie Roulund, RN) Resting Tone (Palpate): Relaxed (Elsie Ortiz, RN) Assessment A Monitor Mode: External US (Elsie Ortiz, RN) FHR Baseline Rate : 135 (Elsie Ortiz, RN) FHR Baseline Changes: No Baseline Change (Elsie Ortiz, RN) Variability: Moderate 6-25 bpm (Elsie Ortiz, RN) Accelerations: None (Elsie Ortiz, RN) Decelerations: None (Elsie Ortiz, RN) Pain Pain Scale: 1 (Elsie Ortiz, RN) Pain Presence: Intermittent (Elsie Ortiz, RN) Pain Type: Cramping (Elsie Ortiz, RN) Pain Location: Abdomen (Elsie Ortiz, RN) Pain Relief Measures: Comfort Measures (Elsie Ortiz, RN) Pain Coping: Talking Through Contractions (Elsie Ortiz, RN) Medications Pitocin (milliunit): Pitocin Increased to (milliunits) @ 12 (Elsie Ortiz, RN) Patient Care IV/Blood Work: IV Infusing per Order (Elsie Ortiz, RN) Comfort Measures: Rocking Chair; Family Support (Elsie Ortiz, RN) Communication Communication: RN at Bedside; RN Reviewed Strip (Elsie Ortiz, RN) LaborFlag: Labor (QS system process) Datetime: 08/14/2016 13:15 Vital Signs Stage of : Labor (Elsie Ortiz RN) Respirations: 18 (Elsie Ortiz RN) Uterine Activity Monitor Mode: External (Elsie Ortiz RN) Monitor Interventions for UA: [place] Adjusted (Elsie Ortiz RN) Frequency (min): 2.5-4 (Elsie Ortiz RN) Quality: Mild (Elsie Ortiz RN) Duration (sec): 55-70 (Elsie Cherie Roulund, RN) Resting Tone (Palpate): Relaxed (Elsie Ortiz, TAWANA) Assessment A Monitor Mode: External US (Elsie Ortiz RN) Monitor Interventions for FHR: Ultrasound Adjusted (Elsie Ortiz RN) FHR Baseline Rate : 140 (Elsie Ortiz RN) FHR Baseline Changes: No Baseline Change (Elsie Ortiz RN) Variability: Moderate 6-25 bpm (Elsie Ortiz, TAWANA) Accelerations: 10X10 (Elsie Ortiz, TAWANA) Decelerations: None (Elsie Ortiz, TAWANA) Pain Relief Measures: Comfort Measures (Elsie Ortiz RN) Pain Coping: Talking Through Contractions (Elsie Ortiz, TAWANA) Medications Pitocin (milliunit): Pitocin Remains (milliunits) @ 10 (Elsie Ortiz, TAWANA) Patient Care IV/Blood Work: IV Infusing per Order (Elsie Moorevera Ortiz, RN) Comfort Measures: Family Support (Elsie Moorevera Ortiz, RN) Communication Communication: RN at Bedside; RN Reviewed Strip (Elsie Moorevera Ortiz, RN) LaborFlag: Labor (QS system process) Datetime: 08/14/2016 13:06 NBP Sys/Tala/Mean (mmHg): 125 (QS system process) : 71 (QS system process) : 93 (QS system process) Pulse: 80 (QS system process) LaborFlag: Labor (QS system process) Datetime: 08/14/2016 13:00 Vital Signs Stage of : Labor (Elsie Ortiz RN) Respirations: 18 (Elsie Ortiz RN) Uterine Activity Monitor Mode: External (Elsie Ortiz RN) Monitor Interventions for UA: [place] Adjusted (Elsie Ortiz RN) Frequency (min): 3-4 (Elsie Ortiz RN) Quality: Mild (Elsie Ortiz RN) Duration (sec): 55-70 (Elsie Ortiz RN) Resting Tone (Palpate): Relaxed (Elsie Ortiz, TAWANA) Assessment A Monitor Mode: External US (Elsie Ortiz RN) Monitor Interventions for FHR: Ultrasound Adjusted (Elsie Oritz RN) FHR Baseline Rate : 140 (Elsie Ortiz RN) FHR Baseline Changes: No Baseline Change (Elsie Ortiz RN) Variability: Moderate 6-25 bpm (Elsie Ortiz RN) Accelerations: 15X15 (Elsie Ortiz, TAWANA) Decelerations: None (Elsie Ortiz RN) Pain Pain Scale: 1 (Elsie Ortiz RN) Pain Presence: Intermittent (Elsie Ortiz RN) Pain Type: Cramping (Elsie Ortiz RN) Pain Location: Abdomen (Elsie Ortiz RN) Pain Relief Measures: Comfort Measures (Elsie Ortiz RN) Pain Coping: Talking Through Contractions (Elsie Ortiz, RN) Medications Pitocin (milliunit): Pitocin Increased to (milliunits) @ 10 (Elsie Ortiz, RN) Patient Care IV/Blood Work: IV Infusing per Order (Elsie Ortiz, RN) Comfort Measures: Rocking Chair; Family Support (Elsie Ortiz RN) I/O Interventions: Up to BR (Elsie Ortiz, RN) Communication Communication: RN at Bedside; RN Reviewed Strip (Elsie Cherie Roulund, RN) LaborFlag: Labor (QS system process) Datetime: 08/14/2016 12:46 Vital Signs Stage of : Labor (Elsie Ortiz, TAWANA) Respirations: 18 (Elsie Ortiz, RN) Uterine Activity Monitor Mode: External (Elsie Ortiz RN) Monitor Interventions for UA: [place] Adjusted (Elsie Ortiz RN) Frequency (min): IRREG (Elsie Ortiz, RN) Quality: Mild (Elsie Ortiz, RN) Duration (sec): 55-70 (Elsie Ortiz, RN) Resting Tone (Palpate): Relaxed (Elsie Ortiz, RN) Assessment A Monitor Mode: External US (Elsie Ortiz, RN) FHR Baseline Rate : 140 (Elsie Ortiz, RN) FHR Baseline Changes: No Baseline Change (Elsie Ortiz, RN) Variability: Moderate 6-25 bpm (Elsie Ortiz, RN) Accelerations: 15X15 (Elsie Ortiz, RN) Decelerations: None (Elsie Ortiz, RN) Pain Relief Measures: Comfort Measures (Elsie Ortiz, RN) Pain Coping: Talking Through Contractions (Elsie Ortiz, RN) Medications Pitocin (milliunit): Pitocin Remains (milliunits) @ 8 (Elsie Ortiz, RN) Patient Care IV/Blood Work: IV Infusing per Order (Elsie Ortiz, RN) Patient Position/Activity: Right Tilt; High Fowlers (Elsie Ortiz, RN) Comfort Measures: Family Support (Elsie Ortiz, RN) Communication Communication: RN at Bedside; RN Reviewed Strip (Elsie Cruzlund, RN) LaborFlag: Labor (QS system process) Datetime: 08/14/2016 12:33 NBP Sys/Tala/Mean (mmHg): 126 (QS system process) : 76 (QS system process) : 96 (QS system process) Pulse: 84 (QS system process) LaborFlag: Labor (QS system process) Datetime: 08/14/2016 12:30 Vital Signs Stage of : Labor (Elsie Ortiz RN) Respirations: 18 (Elsie Ortiz, RN) Uterine Activity Monitor Mode: External (Elsie Ortiz RN) Monitor Interventions for UA: [place] Adjusted (Elsie Cherie Roulund, RN) Frequency (min): IRREG (Elsie Ortiz, RN) Quality: Mild (Elsie Ortiz, RN) Duration (sec): 55-90 (Elsie Ortiz, RN) Resting Tone (Palpate): Relaxed (Elsie Ortiz, RN) Assessment A Monitor Mode: External US (Elsie Ortiz, RN) FHR Baseline Rate : 135 (Elsie Ortiz, RN) FHR Baseline Changes: No Baseline Change (Elsie Ortiz, RN) Variability: Moderate 6-25 bpm (Elsie Crespo Roulund, RN) Accelerations: 15X15 (Elsie Crockettnd, RN) Decelerations: None (Elsie Ortiz, RN) Pain Relief Measures: Comfort Measures (Elsie Ortiz, RN) Pain Coping: Talking Through Contractions (Elsie Ortiz, RN) Medications Pitocin (milliunit): Pitocin Increased to (milliunits) @ 8 (Elsie Ortiz, RN) Patient Position/Activity: Right Tilt; High Fowlers (Elsie Ortiz, RN) Comfort Measures: Family Support (Elsie Ortiz, RN) Communication Communication: RN at Bedside; RN Reviewed Strip (Elsie Ortiz, RN) LaborFlag: Labor (QS system process) Datetime: 08/14/2016 12:15 Vital Signs Stage of : Labor (Elsie Ortiz, RN) Respirations: 18 (Elsie Ortiz, RN) Uterine Activity Monitor Mode: External (Elsie Ortiz, RN) Frequency (min): IRREG (Elsie Ortiz, RN) Quality: Mild (Elsie Ortiz, RN) Duration (sec): 55-90 (Elsie Ortiz, RN) Resting Tone (Palpate): Relaxed (Elsie Ortiz, RN) Assessment A Monitor Mode: External US (Elsie Ortiz, RN) FHR Baseline Rate : 135 (Elsie Ortiz, RN) FHR Baseline Changes: No Baseline Change (Elsie Ortiz, RN) Variability: Moderate 6-25 bpm (Elsie Ortiz, RN) Accelerations: None (Elsie Ortiz, RN) Decelerations: None (Elsie Ortiz, RN) Pain Relief Measures: Comfort Measures (Elsie Ortiz, RN) Pain Coping: Talking Through Contractions (Elsie Ortiz, RN) Medications Pitocin (milliunit): Pitocin Increased to (milliunits) @ 6 (Elsie Ortiz, RN) Patient Care IV/Blood Work: IV Infusing per Order (Elsie Ortiz, RN) Comfort Measures: Family Support (Elsie Ortiz, RN) Communication Communication: RN at Bedside; RN Reviewed Strip (Elsie Ortiz, RN) LaborFlag: Labor (QS system process) Datetime: 08/14/2016 12:03 NBP Sys/Tala/Mean (mmHg): 134 (QS system process) : 75 (QS system process) : 97 (QS system process) Pulse: 88 (QS system process) LaborFlag: Labor (QS system process) Datetime: 08/14/2016 12:00 Vital Signs Stage of : Labor (Elsie Cherie Crockettnd, RN) Respirations: 18 (Elsie Ortiz, RN) Uterine Activity Monitor Mode: External (Elsie Ortiz, RN) Monitor Interventions for UA: [place] Adjusted (Elsie Ortiz, RN) Frequency (min): OCC (Elsie Ortiz, RN) Quality: Mild (Elsie Ortiz, RN) Duration (sec): 55-70 (Elsie Cruzluarian, RN) Resting Tone (Palpate): Relaxed (Elsie Cruzluarian, RN) Assessment A Monitor Mode: External US (Elsie Ortiz, RN) FHR Baseline Rate : 150 (Elsie Cruzlund, RN) FHR Baseline Changes: No Baseline Change (Elsie Cruzlund, RN) Variability: Moderate 6-25 bpm (Elsieporfirio Crespo Roulund, RN) Accelerations: 15X15 (Elsie Cruzlund, RN) Decelerations: None (Elsie Cruzlund, RN) Pain Pain Scale: 0 (Elsie Ortiz, TAWANA) Pain Presence: None/Denies (Elsie Ortiz, TAWANA) Pain Type: N/A (Elsie Ortiz, TAWANA) Pain Relief Measures: Comfort Measures (Elsie Ortiz, TAWANA) Pain Coping: Talking Through Contractions (Elsie Ortiz, TAWANA) Medications Pitocin (milliunit): Pitocin Increased to (milliunits) @ 2 (Elsie Ortiz, RN) Patient Care IV/Blood Work: IV Infusing per Order (Elsie Ortiz RN) Patient Position/Activity: Right Tilt; High Fowlers (Elsie Ortiz, RN) Comfort Measures: Family Support (Elsie Ortiz, RN) Communication Communication: RN at Bedside; RN Reviewed Strip (Elsie Ortiz, RN) LaborFlag: Labor (QS system process) Datetime: 08/14/2016 11:45 Vital Signs Stage of : Labor (Elsie Ortiz, RN) Respirations: 18 (Elsie Ortiz, RN) Uterine Activity Monitor Mode: External (Elsie Cruzlund, RN) Frequency (min): OCC (Elsie Cruzlund, RN) Quality: Mild (Elsie Crespo Roulund, RN) Duration (sec): 40-70 (Elsieporfirio Cruzlund, RN) Resting Tone (Palpate): Relaxed (Elsie Cherie Roulund, RN) Assessment A Monitor Mode: External US (Elsie Cruzlund, RN) FHR Baseline Rate : 150 (Elsie Cherie Roulund, RN) FHR Baseline Changes: No Baseline Change (Elsie Cherie Roulund, RN) Variability: Moderate 6-25 bpm (Elsie Cherie Roulund, RN) Accelerations: 15X15 (Elsie Cherie Roulund, RN) Decelerations: None (Elsieporfirio Crespo Roulund, RN) Pain Pain Scale: 0 (Elsie Moorevera Ortiz, RN) Pain Presence: None/Denies (Elsie Ortiz, RN) Pain Type: N/A (Elsie Ortiz, RN) Pain Relief Measures: Comfort Measures (Elsie Cruzluarian, RN) Pain Coping: Talking Through Contractions (Elsie Moorevera Cruzlund, RN) Medications Pitocin (milliunit): Pitocin Started (milliunits) @ 2 (Elsie Moorevera Ortiz, RN) Patient Position/Activity: Right Tilt; Semi-Fowlers (Elsie Cherievera Ortiz, RN) Comfort Measures: Family Support (Elsie Cherievera Ortiz, ) Teaching Instructional Method: Verbal; Patient Instructed; Family/Support Person Instructed; Verbalized Understanding (Elsie Ortiz RN) Plan of Care: Induction (Elsie Ortiz RN) Pain Management: Pain Scale/Goals; Comfort Measures (Elsie Ortiz RN) Medications: Pitocin (Elsie Ortiz RN) Communication Communication: RN at Bedside; RN Reviewed Strip (Elsie Ortiz RN) LaborFlag: Labor (QS system process) Datetime: 08/14/2016 11:33 NBP Sys/Tala/Mean (mmHg): 128 (QS system process) : 78 (QS system process) : 97 (QS system process) Pulse: 88 (QS system process) LaborFlag: Antepartum (QS system process) Datetime: 08/14/2016 11:26 Vaginal Exam Dilatation (cm): 3.0 (Elsie Ortiz RN) Effacement (%): 80 (Elsie Ortiz RN) Station: 0 (Elsie Ortiz RN) Exam by: Tamie RIVAS CNM (Elsie Ortiz RN) Membrane Status: Ruptured (Elsie Ortiz RN) Membranes Rupture Method: Artificial (Elsie Ortiz RN) Amniotic Fluid Color: Clear (Elsie Ortiz RN) Amniotic Fluid Amount: Small (Elsie Ortiz RN) Vaginal Bleeding: None (Elsie Ortiz RN) Cervix, Consistency: Soft (Elsie Ortiz RN) Cervix, Position: Posterior (Elsie Ortiz RN) Procedures: Sterile Vag Exam (Elsie Ortiz RN) Datetime: 08/14/2016 11:15 Respirations: 18 (Elsie Cruzluarian, RN) Uterine Activity Monitor Mode: External (Elsie Ortiz, RN) Frequency (min): OCC (Elsie Ortiz, RN) Quality: Mild (Elsie Ortiz, RN) Duration (sec): 55-70 (Elsie Ortiz, RN) Resting Tone (Palpate): Relaxed (Elsie Ortiz, RN) Assessment A Monitor Mode: External US (Elsie Ortiz, RN) FHR Baseline Rate : 150 (Elsie Ortiz, RN) FHR Baseline Changes: No Baseline Change (Elsie Ortiz, RN) Variability: Moderate 6-25 bpm (Elsie Ortiz, RN) Accelerations: 15X15 (Elsie Ortiz, RN) Decelerations: None (Elsie Ortiz, RN) Pain Relief Measures: Comfort Measures (Elsie Ortiz RN) Pain Coping: Talking Through Contractions (Elsie Ortiz RN) Patient Care IV/Blood Work: IV Started; IV Bolus Started; New IV Bag Hung (Annotations: #18 JELCO IN RT FA WITH LR @ W/O RATE FOR IVF BOLUS) (Elsie Ortiz RN) Patient Position/Activity: Right Tilt; Semi-Fowlers (Elsie Ortiz RN) Comfort Measures: Family Support (Elsie Ortiz RN) Communication Communication: RN at Bedside; RN Reviewed Strip (Elsie Ortiz RN) LaborFlag: Antepartum (QS system process) Datetime: 08/14/2016 11:03 NBP Sys/Tala/Mean (mmHg): 135 (QS system process) : 70 (QS system process) : 94 (QS system process) Pulse: 97 (QS system process) LaborFlag: Antepartum (QS system process) Datetime: 08/14/2016 10:33 Vital Signs Stage of : Antepartum (Elsie Cherievera Ortiz, RN) NBP Sys/Tala/Mean (mmHg): 118 (QS system process) : 72 (QS system process) : 90 (QS system process) Pulse: 106 (QS system process) Bedside Blood Glucose: 149 (Elsieporfirio Ortiz, RN) Uterine Activity Monitor Mode: External (Elsie Ortiz, TAWANA) Monitor Interventions for UA: [place] Adjusted (Elsie Ortiz, TAWANA) Resting Tone (Palpate): Relaxed (Elsie Ortiz, RN) Assessment A Monitor Mode: External US (Elsie Ortiz, TAWANA) Monitor Interventions for FHR: Ultrasound Adjusted (Elsie Ortiz, TAWANA) FHR Baseline Rate : 150 (Elsie Ortiz, RN) Pain Pain Scale: 0 (Elsie Ortiz RN) Pain Presence: None/Denies (Elsie Ortiz RN) Pain Type: N/A (Elsie Ortiz RN) Pain Goal: 1 (Elsie Ortiz RN) Pain Relief Measures: Comfort Measures (Elsie Ortiz RN) Membrane Status: Intact (Elsie Ortiz RN) Vaginal Bleeding: None (Elsie Ortiz RN) Maternal Assessment Level of Consciousness: Fully Conscious (Elsie Ortiz RN) DTR's/Clonus: DTRs 1+; No Clonus (Elsie Ortiz RN) Headache: Denies (Elsie Ortiz RN) Breath Sounds, Left: Clear and Equal (Elsie Ortiz RN) Breath Sounds, Right: Clear and Equal (Elise Ortiz RN) Nausea/Vomiting: Denies (Elsie Ortiz RN) RUQ Epigastric Pain: Denies (Elsie Ortiz RN) Patient Position/Activity: Right Tilt; Semi-Fowlers (Elsie Ortiz RN) Comfort Measures: Family Support (Elsie Ortiz RN) I/O Interventions: Clear Liquids Given; Up to BR (Elsie Ortiz RN) Anesthesia Anesthesia Plans: Epidural (Elsie Ortiz RN) Teaching Instructional Method: Verbal; Patient Instructed; Family/Support Person Instructed; Verbalized Understanding (Elsie Ortiz RN) Plan of Care: Plan of Care Discussed; Vaginal Delivery; Labor; Induction (Elsie Ortiz RN) Unit Routine: [place] to Room; Call [place]; Bed; Visiting Policy; Waiting Areas; Phone/Cell Phone Use; Photography; Unit Personnel; Handwashing; Monitoring; IV Pumps; Safety/Fall Risk Prevention; Diet/Nutrition Services; Bathroom Privileges (Elsie Ortiz RN) Labor/Induction: Labor Stages; Induction (Elsie Ortiz RN) Pain Management: Epidural; Pain Scale/Goals; Comfort Measures (Elsie Ortiz RN) Medications: Pitocin (Elsie Ortiz RN) Related: Common Discomforts of ; Maternal Physical Changes; Maternal Emotional Changes; Nutrition; Hydration; Activity and Rest (Elsie Ortiz RN) Communication Communication: RN at Bedside; RN Reviewed Strip (Elsie Cherie Roulund, RN) LaborFlag: Antepartum (QS system process) Datetime: 08/14/2016 10:32 Bedside Blood Glucose: 149 H (QS system process) LaborFlag: Labor (QS system process) Datetime: 07/31/2016 15:30 LaborFlag: Labor (QS system process) Datetime: 07/31/2016 15:19 LaborFlag: Labor (QS system process) Datetime: 07/31/2016 15:04 LaborFlag: Labor (QS system process) Datetime: 07/31/2016 14:50 LaborFlag: Labor (QS system process) Datetime: 07/31/2016 14:34 LaborFlag: Labor (QS system process) Datetime: 07/31/2016 14:28 LaborFlag: Labor (QS system process) Datetime: 07/27/2016 12:26 Membranes Ruptured Date/Time: 08/14/2016 11:26 (Elsie Ortiz, RN) Amniotic Fluid Odor: None (Elsie Ortiz, RN) Datetime: 07/27/2016 11:43 Temperature (C): 36.8 (QS system process) LaborFlag: Labor (QS system process)
[2016-08-14] MEDS ORDERED: DIPH/PERTUSS(ACELL)/TETANUS VAC/PF 0.5 ML SYR (>=10YO) IM PRN (22:54)
[2016-08-14] MEDS ORDERED: ACETAMINOPHEN WITH CODEINE #3 TABLET PO PRN ×2 (22:54)
[2016-08-14] MEDS ORDERED: BENZOCAINE/MENTHOL AEROSOL SPRAY 56 ML TOP PRN (22:54)
[2016-08-14] MEDS ORDERED: MEASLES,MUMPS&RUBELLA VACC/PF 0.5 ML VIAL SUBCUT PRN (22:54)
[2016-08-14] MEDS ORDERED: DIBUCAINE 1% OINTMENT 28 GM TP PRN (22:54)
[2016-08-14] MEDS ORDERED: ZOLPIDEM TARTRATE 5 MG TABLET PO PRN (22:54)
[2016-08-14] MEDS ORDERED: IBUPROFEN 800 MG TABLET PO ONE (23:15)
--- NOTE | 2016-08-14 23:18 | Delivery Summary ---
Del Sum A-C Datetime Report Generated by CPN: 08/14/2016 23:17 ADMISSION DATA Chief Complaint: Scheduled Induction of Labor Indication for Induction: Maternal Diabetes Admission Impression: Term, Intrauterine ; No Active Labor; Intact Membranes; Induction of Labor Admit Provider Comments: Admitted to L_D for IOL for Insulin GDM, + FM Cat 1 strip, irregular UC's POC discussed with patient and family DELIVERY PERSONNEL Delivery Doctor:: Tracy Sim MD Labor and Delivery Nurse:: Melanie Jean RN Labor and Delivery Nurse:: Naya Blank RN Commercial Journeyman Electrician/AMBAR: Krissy Soria CNA Additional Personnel: : Benji Bowles RN MATERNAL INFORMATION Delivery Anesthesia: Epidural Medications After Delivery: Pitocin Bolus-Please Comment Estimated Blood Loss (ml): 250 Maternal Complications: Other Other Maternal Complications: GDM- INSULIN Provider Comments: over intact perineum, hemastatic periurethral lacc no repair. live female ap 01/26. loose nuchal easily reduced. spontaneous intact placenta 3vc. no complications LABOR SUMMARY EDC: 08/21/2016 00:00 No. Babies in Womb: 1 Attempted: No Labor Anesthesia: Epidural LABOR INFORMATION Reason for Induction: Maternal Diabetes Onset of Labor: 08/14/2016 11:26 Complete Dilatation: 08/14/2016 21:08 Oxytocin: Induction Group B Beta Strep: NEGATIVE (Annotations: Data stored by [facility] on behalf of user) Antibiotics # of Doses: 0 Steroids Given: None Reason Steroids Not Administered: Not Applicable MEMBRANES Membranes Rupture Method: Artificial Rupture of Membranes: 08/14/2016 11:26 Length of Rupture (hr): 9.78 Amniotic Fluid Color: Clear Amniotic Fluid Amount: Small Amniotic Fluid Odor: None STAGES OF LABOR Stage 1 hr: 9 Stage 1 min: 42 Stage 2 hr: 0 Stage 2 min: 5 Stage 3 hr: 0 Stage 3 min: 3 Total Time in Labor hr: 9 Total Time in Labor min: 50 VAGINAL DELIVERY Episiotomy: None Laceration Extension: N/A Laceration Type: None Laceration Repair: Not Applicable Sponge Count Correct: N/A Sharps Count Correct: N/A CSECTION DELIVERY Primary Indication: N/A Secondary Indication: N/A CSection Incidence: N/A Labor: N/A Elective: N/A CSection Incision: N/A BABY A INFORMATION Infant Delivery Date/Time: 08/14/2016 21:13 Method of Delivery: Vaginal Born in Route : No : N/A Forceps: N/A Vacuum Extraction: N/A Shoulder Dystocia : No PRESENTATION/POSITION BABY A Presentation: Cephalic Cephalic Presentation: Vertex Vertex Position: Left Occipital Anterior Breech Presentation: N/A PLACENTA INFORMATION BABY A Placenta Delivery Time : 08/14/2016 21:16 Placenta Method of Delivery: Spontaneous Placenta Status: Delivered SCORES BABY A Heart Rate 1 min: >100 bpm Resp Effort 1 min: Good Cry Reflex Irritability 1 min: Cough or Sneeze or Pulls Away Muscle Tone 1 min: Active Motion Color 1 min: Body [place], Extremities Blue Resuscitation Effort 1 min: Tactile Stimulation SCORE 1 MIN: 9 Heart Rate 5 min: >100 bpm Resp Effort 5 min: Good Cry Reflex Irritability 5 min: Cough or Sneeze or Pulls Away Muscle Tone 5 min: Active Motion Color 5 min: Body [place], Extremities Blue Resuscitation Effort 5 min: Tactile Stimulation SCORE 5 MIN: 9 INFORMATION BABY A Gestational Age at Delivery: 39.0 Gestational Status: Full Term- 39- 40.6 Weeks Infant Outcome : Liveborn Condition : Stable Sex: Female IDENTIFICATION BABY A Infant Verification Date/Time: 08/14/2016 21:22 ID Band Number: [id number] Mother's Name Verified: Yes Infant RN Verifying Infant: B Ledezma RN Additional Verifying Personnel: Replaced By [facility], RN WEIGHT/LENGTH BABY A Birthweight (gm): 3140 Infant Weight (lb): 6 Infant Weight (oz): 15 Infant Length (in): 19.25 Infant Length (cm): 48.90 CORD INFORMATION BABY A No. Cord Vessels: 3 Nuchal Cord : Around Neck x1, Loose Cord Blood Taken: Yes-For Eval (Mom's Blood Type - or O+) Infant Suction: Mouth; Nose ASSESSMENT BABY A Complications: Multiple Variable Decels Physical Findings at Delivery: Caput Succedaneum; Molding of the Head Infant Respirations: Appears Normal Skin to Skin: Yes Skin to Skin Time (min): 90 Servomechanism Assembler/ALS Called : No Care By: Cornelia Blank RN Transferred To: Remains with Mother BABY B INFORMATION : N/A SIGNATURES Signature: with User ID: [email or web address]
--- NOTE | 2016-08-14 23:38 | Admission Physical ---
Datetime Report Generated by CPN: 08/14/2016 23:38 CURRENT ADMISSION Chief Complaint: Scheduled Induction of Labor Indication for Induction: Maternal Diabetes Admit Plan: Admit to Unit; Initiate Labor Induction Protocol ALLERGIES Medication Allergies: Yes Medication Allergies: Sulfa (Sulfonamide Antibiotics) (07/31/2016) Medication Allergies: Sulfa (Sulfonamide Antibiotics) (07/27/2016) Medication Allergies: Sulfa (Sulfonamide Antibiotics) (11/13/2015) Latex: No Latex Allergies OBSTETRICAL HISTORY EDC: 08/21/2016 00:00 : 3 Para: 2 Term: 1 : 1 SAB: 0 IAB: 0 Ectopic: 0 Livin Cesareans: 0 VBACs: 0 Multiple Births: 0 Gestational Diabetes: Yes Rh Sensitization: No Incompetent Cervix: No MARQUIS: No Infertility: No ART Treatment: No Uterine Anomaly: No IUGR: No Hx Previous C/S: No Macrosomia: No Hx Loss/Stillborn: No PIH: Yes Hx : No Placenta Previa/Abruption: No Depression/PP Depression: No PTL/PROM: No Post Hemorrhage: No Current Procedures: Ultrasound; NST; BPP Obstetrical History Comments: G-1 and G2 del 37 weeks for preeclampsia G3- GDM on insulin SEE RECORDS Alcohol: No Marijuana : No Cocaine: No Other Illicit Drugs: No Cigarettes: Former Smoker. [id number] Cigarette Comments: quit three years ago MEDICAL HISTORY Diabetes: Yes Diabetes Type: Gestational Diabetes Blood Transfusion: No Pulmonary Disease (Asthma, TB): No Breast Disease: No Hypertension: No Cremator Surgery: No Heart Disease: No Hosp/Surgery: Yes Autoimmune Disorder: No Anesthetic Complications: No Kidney Disease: No Abnormal Pap Smear: No Neuro/Epilepsy: No Psychiatric Disorders: No Other Medical Diseases: Yes Hepatitis/Liver Disease: No Significant Family History: No Varicosities/Phlebitis: No Trauma/Violence : No Thyroid Dysfunction: No Medical History Comments: possible slight heart murmur , childbirth, tubes placed in ears bilaterally age 10 ( received abx prior to surgery, for heart murmur) INFECTIOUS HISTORY Gonorrhea: No Genital Herpes: No Chlamydia: No Tuberculosis: No Syphilis: No Hepatitis: No HIV/AIDS Exposure: No Rash or Viral Illness: No HPV: No PHYSICAL EXAM General: Normal HEENT: Normal Neurologic: Normal Thyroid: Normal Heart: Normal Lungs: Normal Breast: Deferred Back: Normal Abdomen: Normal Genitourinary Exam: Normal Extremities: Normal DTRs: Normal Pelvic Type: Adequate Physical Exam Comments: Gestational DM, Insulin @ 35+3 Seen by MFM Late entry to care @ 23 weeks ASCUS pap, neg HPV Vital Signs: Reviewed VAGINAL EXAM Dilatation: 3 Effacement: 80 FETUS A EGA: 39.0 Monitoring: External US FHR- Baseline: 155 Variability: Moderate 6-25bpm Accelerations: 15X15 Decelerations: None FHR Category: Category I Admit Comment: Admitted to L_D for IOL for Insulin GDM, + FM Cat 1 strip, irregular UC's POC discussed with patient and family PLANS FOR LABOR AND DELIVERY Labor and Delivery: None Pain Management: Epidural Feeding Preference: Breast Benefit of Breast Feed Discussed: Yes Circumcision: N/A INFORMED CONSENT Assignment: Tracy Sim MD Signature: with User ID: Angel : with User ID: [email or web address]
[2016-08-15] MEDS: IBUPROFEN 800 MG TABLET PO SCH ×3 (06:10→21:06)
--- NOTE | 2016-08-15 07:01 | L&D Flow Sheet ---
LD Flowsheet Datetime Report Generated by CPN: 08/15/2016 07:00 Datetime: 08/14/2016 23:13 Stage of : Recovery (Crystal Miranda, RN) Datetime: 08/14/2016 23:00 Stage of : Recovery (Crystal Miranda, RN) NBP Sys/Tala/Mean (mmHg): 122 (QS system process) : 62 (QS system process) : 86 (QS system process) Pulse: 96 (QS system process) Datetime: 08/14/2016 22:45 Stage of : Recovery (Crystal Bement, RN) NBP Sys/Tala/Mean (mmHg): 116 (QS system process) : 58 (QS system process) : 81 (QS system process) Pulse: 94 (QS system process) Pain Scale: 0 (Crystal Miranda, RN) Pain Presence: None/Denies (Crystal Bement, RN) Pain Type: N/A (Crystal Miranda, RN) Pain Goal: 1 (Crystal Miranda, RN) Pain Relief Measures: Comfort Measures (Crystal Miranda, RN) Datetime: 08/14/2016 22:30 Stage of : Recovery (Crystal Miranda, RN) NBP Sys/Tala/Mean (mmHg): 117 (QS system process) : 59 (QS system process) : 80 (QS system process) Pulse: 88 (QS system process) Datetime: 08/14/2016 22:15 Stage of : Recovery (Crystal Miranda, RN) NBP Sys/Tala/Mean (mmHg): 134 (QS system process) : 64 (QS system process) : 92 (QS system process) Pulse: 86 (QS system process) Datetime: 08/14/2016 22:00 Stage of : Recovery (Crystal Miranda, RN) NBP Sys/Tala/Mean (mmHg): 122 (QS system process) : 58 (QS system process) : 84 (QS system process) Pulse: 103 (QS system process) Datetime: 08/14/2016 21:54 Stage of : Recovery (Crystal Miranda, RN) Datetime: 08/14/2016 21:45 Stage of : Recovery (Crystal Miranda, RN) NBP Sys/Tala/Mean (mmHg): 122 (QS system process) : 63 (QS system process) : 88 (QS system process) Pulse: 85 (QS system process) Datetime: 08/14/2016 21:30 Stage of : Recovery (Crystal Bement, RN) NBP Sys/Tala/Mean (mmHg): 119 (QS system process) : 61 (QS system process) : 81 (QS system process) Pulse: 90 (QS system process) Pain Scale: 0 (Crystal Miranda, RN) Pain Presence: None/Denies (Crystal Miranda, RN) Pain Type: N/A (Crystal Miranda, RN) Pain Goal: 1 (Crystal Bement, RN) Pain Relief Measures: Comfort Measures (Crystal Bement, RN) Datetime: 08/14/2016 21:16 Stage of : Labor (Melanie Jean RN) Stage 2 Comments: Placenta delivered. (Melanie Jean RN) Datetime: 08/14/2016 21:15 NBP Sys/Tala/Mean (mmHg): 120 (QS system process) : 59 (QS system process) : 85 (QS system process) Pulse: 101 (QS system process) LaborFlag: Labor (QS system process) Datetime: 08/14/2016 21:13 Stage of : Labor (Melanie Jean RN) Stage 2 Comments: NVD viable baby girl. (Crystal Bement, RN) Communication: RN at Bedside (Crystal Bement, RN) Datetime: 08/14/2016 21:09 Pushing: Urge to Push (Crystal Bement, RN) Pushing Position: Pushing with Contractions (Crystal Miranda, RN) Datetime: 08/14/2016 21:08 Dilatation (cm): 10.0 (Naya Blank RN) Exam by: Dr. Sim (Naya Blank RN) Pitocin (milliunit): Pitocin Discontinued (Melanie Jean RN) Communication: Provider at Bedside (Melanie Jean RN) Provider Notified (Name): Roney (Melanie Jean, RN) Datetime: 08/14/2016 21:01 NBP Sys/Tala/Mean (mmHg): 124 (QS system process) : 70 (QS system process) : 91 (QS system process) Pulse: 80 (QS system process) LaborFlag: Labor (QS system process) Datetime: 08/14/2016 21:00 Monitor Mode: External (Crystal Bement, RN) Frequency (min): 1-3 (Crystal Miranda, RN) Quality: Moderate to Strong (Crystal Miranda, RN) Duration (sec): 60-90 (Crystal Bement, RN) Duration Criteria: Less than Two 120 Second Contractions (Crystal Miranda, RN) Resting Tone (Palpate): Relaxed (Crystal Miranda, RN) Monitor Mode: External US (Crystal Bement, RN) FHR Baseline Rate : 135 (Crystal Bement, RN) Variability: Moderate 6-25 bpm (Crystal Bement, RN) Decelerations: Variable (Crystal Miranda, RN) Pitocin (milliunit): Pitocin Remains (milliunits) @ 20 (Crystal Miranda, RN) Patient Position/Activity: Tailors (Crystal Miranda, RN) Pushing Position: Laboring Down (Crystal Bement, RN) Datetime: 08/14/2016 20:46 I/O Interventions: [place] Discontinued (Crystal Miranda, RN) Datetime: 08/14/2016 20:45 NBP Sys/Tala/Mean (mmHg): 135 (QS system process) : 66 (QS system process) : 95 (QS system process) Pulse: 105 (QS system process) Monitor Mode: External (Crystal Bement, RN) Frequency (min): 1-3 (Crystal Bement, RN) Quality: Moderate to Strong (Crystal Miranda, RN) Duration (sec): 60-90 (Crystal Miranda, RN) Duration Criteria: Less than Two 120 Second Contractions (Crystal Miranda, RN) Resting Tone (Palpate): Relaxed (Crystal Miranda, RN) Monitor Mode: External US (Melanie Bement, RN) FHR Baseline Rate : 135 (Crystal Bement, RN) Variability: Moderate 6-25 bpm (Crystal Bement, RN) Decelerations: Early (Melanie Miranda, RN) Pitocin (milliunit): Pitocin Remains (milliunits) @ 20 (Mealnie Jean, RN) Patient Position/Activity: Tailors (Crystal Miranda, RN) LaborFlag: Labor (QS system process) Datetime: 08/14/2016 20:44 Dilatation (cm): 9.5 (Crystal Miranda, RN) Effacement (%): 100 (Crystal Miranda, RN) Station: 1 (Crystal Miranda, RN) Exam by: C. Miranda, RN (Crystal Bement, RN) Datetime: 08/14/2016 20:42 Pushing: Urge to Push (Crystal Miranda, RN) Datetime: 08/14/2016 20:32 NBP Sys/Tala/Mean (mmHg): 124 (QS system process) : 58 (QS system process) : 84 (QS system process) Pulse: 96 (QS system process) LaborFlag: Labor (QS system process) Datetime: 08/14/2016 20:30 Monitor Mode: External (Crystal Bement, RN) Frequency (min): 1-3 (Crystal Bement, RN) Quality: Moderate to Strong (Crystal Bement, RN) Duration (sec): 60-90 (Crystal Miranda, RN) Duration Criteria: Less than Two 120 Second Contractions (Crystal Miranda, RN) Resting Tone (Palpate): Relaxed (Crystal Bement, RN) Monitor Mode: External US (Crystal Miranda, RN) FHR Baseline Rate : 140 (Crystal Miranda, RN) Variability: Moderate 6-25 bpm (Crystal Bement, RN) Accelerations: 15X15 (Crystal Bement, RN) Decelerations: Early; Variable (Crystal Bement, RN) Pitocin (milliunit): Pitocin Remains (milliunits) @ 20 (Crystal Bement, RN) Patient Position/Activity: Tailors (Crystal Bement, RN) Datetime: 08/14/2016 20:16 NBP Sys/Tala/Mean (mmHg): 118 (QS system process) : 70 (QS system process) : 89 (QS system process) Pulse: 85 (QS system process) LaborFlag: Labor (QS system process) Datetime: 08/14/2016 20:15 Monitor Mode: External; Palpation (Crystal Bement, RN) Frequency (min): 1-3.5 (Crystal Miranda, RN) Quality: Moderate to Strong (Crystal Miranda, RN) Duration (sec): 50-100 (Crystal Bement, RN) Duration Criteria: Less than Two 120 Second Contractions (Crystal Miranda, RN) Resting Tone (Palpate): Relaxed (Crystal Bement, RN) Monitor Mode: External US (Crystal Bement, RN) FHR Baseline Rate : 135 (Crystal Miranda, RN) Variability: Moderate 6-25 bpm (Crystal Bement, RN) Accelerations: 10X10 (Crystal Bement, RN) Decelerations: Variable (Crystal Miranda, RN) Pitocin (milliunit): Pitocin Remains (milliunits) @ 20 (Crystal Miranda, RN) Patient Position/Activity: Tailors (Crystal Bement, RN) Datetime: 08/14/2016 20:02 NBP Sys/Tala/Mean (mmHg): 114 (QS system process) : 63 (QS system process) : 84 (QS system process) Pulse: 88 (QS system process) LaborFlag: Labor (QS system process) Datetime: 08/14/2016 20:00 Monitor Mode: External; Palpation (Crystal Bement, RN) Frequency (min): 2-3.5 (Crystal Bement, RN) Quality: Moderate to Strong (Crystal Bement, RN) Duration (sec): 50-90 (Crystal Bement, RN) Duration Criteria: Less than Two 120 Second Contractions (Crystal Bement, RN) Resting Tone (Palpate): Relaxed (Crystal Miranda, RN) Monitor Mode: External US (Crystal Miranda, RN) Variability: Moderate 6-25 bpm (Crystal Miranda, RN) Accelerations: 15X15 (Crystal Miranda, RN) Decelerations: Early (Crystal Bement, RN) Pitocin (milliunit): Pitocin Remains (milliunits) @ 20 (Melanie Miranda, RN) Patient Position/Activity: Tailors (Crystal Miranda, RN) Datetime: 08/14/2016 19:49 Comments: Position change (Crystal Bement, RN) Datetime: 08/14/2016 19:45 NBP Sys/Tala/Mean (mmHg): 124 (QS system process) : 78 (QS system process) : 95 (QS system process) Pulse: 79 (QS system process) Monitor Mode: External; Palpation (Crystal Miranda, RN) Frequency (min): 1-5 (Crystal Bement, RN) Quality: Moderate to Strong (Crystal Bement, RN) Duration (sec): 50-100 (Crystal Bement, RN) Duration Criteria: Less than Two 120 Second Contractions (Crystal Miranda, RN) Resting Tone (Palpate): Relaxed (Crystal Miranda, RN) Monitor Mode: External US (Crystal Miranda, RN) FHR Baseline Rate : 135 (Crystal Bement, RN) Variability: Moderate 6-25 bpm (Crystal Miranda, RN) Accelerations: 15X15 (Crystal Bement, RN) Actions for Decelerations: Side to Side (Melanie Jean RN) Pitocin (milliunit): Pitocin Remains (milliunits) @ 20 (Melanie Jean RN) Patient Position/Activity: Tailors (Melanie Jean RN) LaborFlag: Labor (QS system process) Datetime: 08/14/2016 19:41 Dilatation (cm): 8.0 (Melanie Jean RN) Effacement (%): 90 (Melanie Jean RN) Station: 0 (Melanie Jean RN) Exam by: Dr. Sim (Melanie Jean RN) Cervix, Consistency: Soft (Melanie Jean RN) Datetime: 08/14/2016 19:30 NBP Sys/Tala/Mean (mmHg): 113 (QS system process) : 63 (QS system process) : 82 (QS system process) Pulse: 73 (QS system process) Monitor Mode: External; Palpation (Melanie Jean RN) Frequency (min): 2-3 (Crystal Bement, RN) Quality: Moderate to Strong (Crystal Bement, RN) Duration (sec): 50-90 (Crystal Bement, RN) Duration Criteria: Less than Two 120 Second Contractions (Crystal Bement, RN) Resting Tone (Palpate): Relaxed (Crystal Bement, RN) Monitor Mode: External US (Crystal Miranda, RN) FHR Baseline Rate : 135 (Crystal Miranda, RN) Variability: Moderate 6-25 bpm (Crystal Miranda, RN) Decelerations: Variable (Crystal Bement, RN) Pitocin (milliunit): Pitocin Remains (milliunits) @ 20 (Crystal Miranda, RN) Patient Position/Activity: Tailors (Crystal Miranda, RN) LaborFlag: Labor (QS system process) Datetime: 08/14/2016 19:22 Temperature (F): 98.2 (Crystal Bement, RN) Temperature (C): 36.8 (QS system process) LaborFlag: Labor (QS system process) Datetime: 08/14/2016 19:16 NBP Sys/Tala/Mean (mmHg): 112 (QS system process) : 61 (QS system process) : 81 (QS system process) Pulse: 84 (QS system process) Level of Consciousness: Fully Conscious (Crystal Bement, RN) DTR's/Clonus: DTRs 1+; No Clonus (Crystal Miranda, RN) Headache: Denies (Crystal Bement, RN) Breath Sounds, Left: Clear and Equal (Crystal Miranda, RN) Breath Sounds, Right: Clear and Equal (Crystal Bement, RN) Nausea/Vomiting: Denies (Crystal Miranda, RN) RUQ Epigastric Pain: Denies (Crystal Bement, RN) Pitocin (milliunit): Pitocin Remains (milliunits) @ (Annotations: 20) (Crystal Bement, RN) LaborFlag: Labor (QS system process) Datetime: 08/14/2016 19:15 Monitor Mode: External; Palpation (Crystal Miranda, RN) Frequency (min): 2-3 (Crystal Bement, RN) Quality: Moderate to Strong (Crystal Bement, RN) Duration (sec): 70-100 (Crystal Bement, RN) Duration Criteria: Less than Two 120 Second Contractions (Crystal Bement, RN) Resting Tone (Palpate): Relaxed (Crystal Miranda, RN) Monitor Mode: External US (Crystal Miranda, RN) FHR Baseline Rate : 140 (Crystal Bement, RN) Variability: Moderate 6-25 bpm (Crystal Bement, RN) Decelerations: Early; Variable (Crystal Bement, RN) Pitocin (milliunit): Pitocin Remains (milliunits) @ 20 (Melanie Jean RN) Patient Position/Activity: Tailors (Melanie Jean RN) Datetime: 08/14/2016 19:01 NBP Sys/Tala/Mean (mmHg): 120 (QS system process) : 74 (QS system process) : 93 (QS system process) Pulse: 78 (QS system process) LaborFlag: Labor (QS system process) Datetime: 08/14/2016 19:00 Stage of : Labor (Elsie Ortiz RN) Respirations: 18 (Elsie Ortiz RN) Monitor Mode: External; Palpation (Elsie Ortiz RN) Monitor Interventions for UA: [place] Adjusted (Elsie Ortiz RN) Frequency (min): 2-3 (Elsie Ortiz RN) Quality: Moderate to Strong (Elsie Ortiz RN) Duration (sec): 55-70 (Elsie Ortiz RN) Resting Tone (Palpate): Relaxed (Elsie Ortiz, [place]) Monitor Mode: External US (Elsie Ortiz RN) FHR Baseline Rate : 145 (Elsie Ortiz RN) FHR Baseline Changes: No Baseline Change (Elsie Ortiz RN) Variability: Moderate 6-25 bpm (Elsie Ortiz, [place]) Accelerations: None (Elsie Ortiz RN) Decelerations: Early; Variable (Elsie Oritz RN) Pain Scale: 0 (Elsie Ortiz RN) Pain Presence: Intermittent (Elsie Ortiz RN) Pain Type: Pressure (Elsie Ortiz, [place]) Pain Location: Perineum (Elsie Ortiz, [place]) Pain Relief Measures: Comfort Measures (Elsie Ortiz, [place]) Pain Coping: Talking Through Contractions (Elsie Ortiz, [place]) Pitocin (milliunit): Pitocin Remains (milliunits) @ 20 (Elsie Ortiz, [place]) IV/Blood Work: IV Infusing per Order (Elsie Ortiz, [place]) Patient Position/Activity: Tailors (Elsie Ortiz, [place]) Comfort Measures: Family Support (Elsie Ortiz, [place]) Communication: RN at Bedside; RN Reviewed Strip; Report Given to @ DR SIM @ 0670 (Elsie Ortiz, [place]) Notification Reason: Status Update; Status; Uterine Activity; Pain (Elsie Ortiz, [place]) LaborFlag: Labor (QS system process)
[2016-08-15 07:54] LABS: HEMATOCRIT 27.2 % (36.0-47.0); HEMOGLOBIN 8.9 g/dL (12.0-15.5); HGB HCT DIFFERENCE -0.5; MEAN CORPUSCULAR HGB CONC 32.5 g/dL (32.0-36.0); MEAN CORPUSCULAR VOLUME 80 fl (80-97); RED BLOOD COUNT 3.41 10^6/uL (3.72-5.28); WHITE BLOOD COUNT 13.2 10^3/uL (4.0-10.5)
[2016-08-15] MEDS: PRENATAL VITAMIN W-O CA NO5/FE FUMARATE/FA CAPSULE PO SCH (10:28)
[2016-08-15] MEDS: FERROUS SULFATE 325 MG TABLET PO SCH ×2 (10:28→17:26)
[2016-08-15] MEDS: SENNOSIDES/DOCUSATE 8.6-50 MG 1 EACH TABLET PO SCH (10:28)
[2016-08-15] MEDS: DOCUSATE SODIUM 100 MG CAPSULE PO SCH ×2 (10:28→17:27)
--- NOTE | 2016-08-15 15:54 | PDOC PROGRESS REPORT ---
Subjective-OB Subjective: Post Delivery Day: 31 year old. Denies any needs at this time sitting up bonding well with baby and family abdomen soft ff@u-a mild lochia anticipate d/c in AM Physical Exam (OB) Vital Signs: Temp Pulse Resp BP Pulse Ox 97.9 F 73 16 110/58 L 100 08/15/16 08:53 08/15/16 08:53 08/15/16 08:53 08/15/16 08:53 08/15/16 08:53 Intake & Output 08/14/16 08/15/16 08/16/16 06:59 06:59 06:59 Intake Total 500 Balance 500 - Lochia Lochia Amount: Scant < 10 ml Lochia Color: Rubra/Red - Abdomen Description: Tender, Soft Hernia Present: No Fundal Description: Firm, Midline Fundal Height: u/u - u/2 Objective-Diagnostic Laboratory: 08/15/16 07:33 08/15/16 07:33 WBC 13.2 H RBC 3.41 L Hgb 8.9 L Hct 27.2 L MCV 80 MCH 26.0 L MCHC 32.5 RDW 16.0 H Plt Count 234
--- NOTE | 2016-08-15 18:01 | L&D Current Admission ---
Current Admit Datetime Report Generated by CPN: 08/15/2016 18:00 ADMISSION INFORMATION Chief Complaint: Scheduled Induction of Labor (08/14/2016 10:33:Elsie Ortiz RN)
--- NOTE | 2016-08-15 18:01 | L&D General Admission ---
General Admit Datetime Report Generated by CPN: 08/15/2016 18:00 INFORMATION Patient Age: 31 (07/27/2016 11:30:QS system process) EDC: 08/21/2016 00:00 (07/27/2016 12:26:ALEJANDRO Bundy) : 3 (07/27/2016 12:26:ALEJANDRO Bundy) Para: 2 (07/27/2016 12:26:ALEJANDRO Bundy) Term: 1 (07/27/2016 12:26:ALEJANDRO Bundy) : 1 (07/27/2016 12:26:ALEJANDRO Bundy) Spontaneous Abortions: 0 (07/27/2016 12:26:ALEJANDRO Bundy) Induced Abortions: 0 (07/27/2016 12:26:ALEJANDRO Bundy) Livin (07/27/2016 12:26:ALEJANDRO Bundy) Cesareans: 0 (07/27/2016 12:26:ALEJANDRO Bundy) VBACs: 0 (07/27/2016 12:26:ALEJANDRO Bundy) Ectopic: 0 (07/27/2016 12:26:[facility], [facility]) Multiple Births: 0 (07/27/2016 12:26:[facility]) Baby, Number in Womb: 1 (07/27/2016 12:26:[facility]) CARE Primary Accounting Officer: [facility] [facility] (07/27/2016 12:26:Julia Allen [facility]) Month of 1st Visit: December (07/27/2016 12:26:Julia Damascus [facility]) Adequate Care: Yes (07/27/2016 12:26:Julia Damascus [facility]) Prepregnancy Weight (lb): 178 [facility]) Prepregnancy Weight (kg): 80.9 (07/27/2016 12:26:QS system process) Height (in): 57 (07/31/2016 14:28:QS system process) ALLERGIES Medication Allergy: Yes (07/27/2016 12:26:Julia Allen [facility]) Medication Allergies: Sulfa (Sulfonamide Antibiotics) (07/31/2016) (07/31/2016 14:28:QS system process) Latex Allergy: No Latex Allergies (07/27/2016 12:26:Julia Damascus [facility]) COMMUNICATION Primary Language: Croatian (07/27/2016 12:26:Julia Allen, [facility]) Medical Tx Preferred Language: Croatian (07/27/2016 12:26:Julia Allen, [facility]) Communication Barrier(s): None (07/27/2016 12:26:Julia Allen, [facility]) DEMOGRAPHICS Address: [address], [address] [place] [id number] (07/27/2016 11:30:QS system process) Zipcode: [address] (07/27/2016 11:30:QS system process) Home (07/27/2016 11:30:QS system process) SSN: [id number] (07/27/2016 11:30:QS system process) Next of Kin Name: SUZAN ZHU (07/27/2016 11:30:QS system process) Next of Kin (07/27/2016 11:30:QS system process) Next of Kin Relationship: SPO (07/27/2016 11:30:QS system process) Date of : 1985 (07/27/2016 11:30:QS system process) Marital Status: (07/27/2016 11:30:QS system process) Sex: Female (07/27/2016 11:30:QS system process) Occupation: Homemaker (07/27/2016 12:26:ALEJANDRO Bundy) Race: (07/27/2016 11:30:QS system process) Ethnicity: Non- or (07/27/2016 11:30:QS system process) Episcopal: None (07/31/2016 14:08:QS system process) Education: 12 (07/27/2016 12:26:ALEJANDRO Bundy) FOB Involved: Yes (07/27/2016 12:26:ALEJANDRO Bundy) Father of Baby Name: Suzan Zhu (07/27/2016 12:26:ALEJANDRO Bundy) DRUG AND ALCOHOL USE Alcohol: No (07/27/2016 12:26:ALEJANDRO Bundy) Cigarettes: Former Smoker. [id number] (07/27/2016 12:26:ALEJANDRO Bundy) Cigarette Comments: quit three years ago (07/27/2016 12:26:ALEJANDRO Bundy) Marijuana: No (07/27/2016 12:26:ALEJANDRO Bundy) Cocaine: No (07/27/2016 12:26:ALEJANDRO Bundy) Other Illicit Drugs: No (07/27/2016 12:26:Julia Camp, [facility]) VACCINE HISTORY Influenza Vaccine: Yes (07/27/2016 12:26:Julia Camp, [facility]) Pneumococcal Vaccine: No (07/27/2016 12:26:Julia Camp, [facility]) Tetanus Vaccine: Yes (07/27/2016 12:26:Julia Camp, [facility]) Tetanus Date: 2014 (07/27/2016 12:26:Julia Damascus, [facility]) Tdap Vaccine: Yes (07/27/2016 12:26:Julia Damascus, [facility]) Tdap Date: 2014 (07/27/2016 12:26:[facility], [facility]) Hepatitis B Vaccine: Uncertain (07/27/2016 12:26:Julia Damascus, [facility]) Contour Path Tape Mill Operator: [facility] (07/27/2016 12:26:Julia Camp, [facility]) Feeding Preference: Breast (07/27/2016 12:26:Julia Camp, [facility]) Benefit of Breast Feed Discussed: Yes (07/27/2016 12:26:ALEJANDRO Bundy) Circumcision: N/A (07/27/2016 12:26:ALEJANDRO Bundy) Classes Attended: No (07/27/2016 12:26:ALEJANDRO Bundy) Tubal Ligation: Yes (07/27/2016 12:26:ALEJANDRO Bundy) Tubal Authorization Signed: Yes (07/27/2016 12:26:ALEJANDRO Bundy) Consent: N/A (07/27/2016 12:26:ALEJANDRO Bundy) Consent Signed: N/A (07/27/2016 12:26:ALEJANDRO Bundy) Pain Management Plans: Epidural (07/27/2016 12:26:ALEJANDRO Bundy) Plans for Labor and Delivery: None (07/27/2016 12:26:ALEJANDRO Bundy) Support Person: Jameel Zhu (07/27/2016 12:26:ALEJANDRO Bundy) Support Person Relationship: (07/27/2016 12:26:ALEJANDRO Bundy) Cultural/Spritual Practice: No (07/27/2016 12:26:ALEJANDRO Bundy) Spir/Cult Dietary Needs: No (07/27/2016 12:26:ALEJANDRO Bundy) LIVING SITUATION/DISCHARGE PLAN Living Arrangements: Apartment (07/27/2016 12:26:ALEJANDRO Bundy) Adequate Access to:: Electric; Heat; Refrigeration; Plumbing/Running water; Phone; Transportation (07/27/2016 12:26:ALEJANDRO Bundy) WIC Program: Needs referral (07/27/2016 12:26:ALEJANDRO Bundy) Discharge Resource Management Specialist Person: Jameel Zhu (07/27/2016 12:26:ALEJANDRO Bundy) Person to Help after Discharge: Jameel Zhu (07/27/2016 12:26:ALEJANDRO Bundy) Currently Using Commun Resources: Yes (07/27/2016 12:26:ALEJANDRO Bundy) Specify Current Resource Used: medicaid, food stamps (07/27/2016 12:26:ALEJANDRO Bundy) Outside Agency/Psychiatric Attendant: No (07/27/2016 12:26:ALEJANDRO Bundy) Car Seat for Discharge: Yes (07/27/2016 12:26:ALEJANDRO Bundy) Adoption Requested: No (07/27/2016 12:26:ALEJANDRO Bundy) Pt Contact w/infant Post : N/A (07/27/2016 12:26:ALEJANDRO Bundy) LABS Blood Type: O Positive (07/27/2016 12:26:Elsie Ortiz RN) Hemoglobin: 8.9 L (08/15/2016 07:33:QS system process) Hematocrit: 27.2 L (08/15/2016 07:33:QS system process) MCV: 80 (08/15/2016 07:33:QS system process) Group Beta Strep: NEGATIVE (Annotations: Data stored by CPColleen on behalf of user) (07/27/2016 12:26:Elsie Ortiz RN) Gonorrhea: Negative (07/27/2016 12:26:Elsie Ortiz RN) Chlamydia: Negative (07/27/2016 12:26:Elsie Ortiz RN) RPR/VDRL: Nonreactive (07/27/2016 12:26:Elsie Ortiz RN) HIV Exposure Test: Negative (07/27/2016 12:26:Elsie Ortiz RN) Hepatitis B: Negative (07/27/2016 12:26:Elsie Ortiz RN) Rubella: Immune (07/27/2016 12:26:Elsie Ortiz RN) OB/PREVIOUS HISTORY Previous Procedures: Ultrasound; NST; BPP (07/27/2016 12:26:ALEJANDRO Bundy) Current Procedures: Ultrasound; NST; BPP (07/27/2016 12:26:ALEJANDRO Bundy) History of Previous : No (07/27/2016 12:26:ALEJANDRO Bundy) History of Gestational Diabetes: Yes (07/27/2016 12:26:ALEJANDRO Bundy) History of PIH: Yes (07/27/2016 12:26:ALEJANDRO Bundy) History of Incompetent Cervix: No (07/27/2016 12:26:ALEJANDRO Bundy) History of Placenta Previa/Abrup: No (07/27/2016 12:26:ALEJANDRO Bundy) History of Macrosomia: No (07/27/2016 12:26:ALEJANDRO Bundy) History of IUGR: No (07/27/2016 12:26:ALEJANDRO Bundy) History of Hemorrhage: No (07/27/2016 12:26:ALEJANDRO Bundy) History of Loss/Stillborn: No (07/27/2016 12:26:ALEJANDRO Bundy) History of : No (07/27/2016 12:26:ALEJANDRO Bundy) History of D (Rh) Sensitization: No (07/27/2016 12::ALEJANDRO Bundy) History Recurrent Loss/Stillborn: No (07/27/2016 12:26:ALEJANDRO Bundy) History Depression/PP Depression: No (07/27/2016 12:26:ALEJANDRO Bundy) History of Uterine Anomaly/MARQUIS: No (07/27/2016 12:26:ALEJANDRO Bundy) History of Infertility: No (07/27/2016 12::ALEJANDRO Bundy) History of ART Treatment: No (07/27/2016 12::ALEJANDRO Bundy) History of MARQUIS: No (07/27/2016 12::ALEJANDRO Bundy) Comments Obstetrical History: G-1 and G2 del 37 weeks for preeclampsia G3- GDM on insulin (07/27/2016 12:26:ALEJANDRO Bundy) MEDICAL HISTORY Med Hx Diabetes: Yes (07/27/2016 12:26:ALEJANDRO Bundy) Diabetes Type: Gestational Diabetes (07/27/2016 12::ALEJANDRO Bundy) Med Hx Hypertension: No (07/27/2016 12:26:ALEJANDRO Bundy) Med Hx Heart Disease: No (07/27/2016 12:26:ALEJANDRO Bundy) Med Hx Autoimmune Disorder: No (07/27/2016 12:26:ALEJANDRO Bundy) Med Hx Kidney Disease/UTI: No (07/27/2016 12:26:ALEJANDRO Bundy) Med Hx Neurologic/Epilepsy: No (07/27/2016 12:26:ALEJANDRO Bundy) Med Hx Psychiatric Disorders: No (07/27/2016 12:26:ALEJANDRO Bundy) Med Hx Hepatitis/Liver Disease: No (07/27/2016 12:26:ALEJANDRO Bundy) Med Hx Varicosities/Phlebitis: No (07/27/2016 12:26:ALEJANDRO Bundy) Med Hx Thyroid Dysfunction: No (07/27/2016 12:26:ALEJANDRO Bundy) Med Hx Trauma/Violence: No (07/27/2016 12:26:ALEJANDRO Bundy) Med Hx Blood Transfusion: No (07/27/2016 12:26:ALEJANDRO Bundy) Med Hx Pulmonary (Asthma,TB): No (07/27/2016 12:26:ALEJANDRO Bundy) Med Hx Breast: No (07/27/2016 12:26:ALEJANDRO Bundy) Med Hx PHARMACIST HOSPITAL Surgery: No (07/27/2016 12:26:ALEJANDRO Bundy) Med Hx Hospitalization/Surgery: Yes (07/27/2016 12:26:Elsie Ortiz RN) Med Hx Anesthetic Complications: No (07/27/2016 12:26:ALEJANDRO Bundy) Med Hx Abnormal Pap Smear: No (07/27/2016 12:26:ALEJANDRO Bundy) Other Medical Diseases: Yes (07/27/2016 12:26:ALEJANDRO Bundy) Med Hx Significant Family Hx: No (07/27/2016 12:26:ALEJANDRO Bundy) Details of Med/Surg Hx: possible slight heart murmur , childbirth, tubes placed in ears bilaterally age 10 ( received abx prior to surgery, for heart murmur) (07/27/2016 12:26:Elsie Ortiz RN) INFECTIOUS HISTORY Inf Hx Gonorrhea: No (07/27/2016 12:26:[facility]) Inf Hx Chlamydia: No (07/27/2016 12:26:[facility]) Inf Hx Syphilis: No (07/27/2016 12:26:[facility]) Inf Hx HIV/AIDS: No (07/27/2016 12:26:[facility]) Inf Hx Human Papilloma Virus: No (07/27/2016 12::[facility]) Inf Hx Pt/Partner Genital Herpes: No (07/27/2016 12:26:[facility]) Inf Hx Tuberculosis/Exposure: No (07/27/2016 12::[facility]) Inf Hx Hepatitis B,C: No (07/27/2016 12:26:[facility]) Inf Hx Rash or Viral Illness: No (07/27/2016 12:26:[facility]) GENETIC HISTORY Gen Hx Age >=35 at DANIEL: No (07/27/2016 12:26:[facility]) Gen Hx Thalassemia: No (07/27/2016 12:26:[facility]) Gen Hx Congenital Heart Defect: No (07/27/2016 12:26:[facility]) Gen Hx Neural Tube Defect: No (07/27/2016 12:26:[facility]) Gen Hx Down's Syndrome: No (07/27/2016 12:26:Julia Allen [facility]) Gen Hx Kingston-Sachs: No (07/27/2016 12:26:Julia Allen [facility]) Gen Hx Pricila: No (07/27/2016 12:26:Julia Allen [facility]) Gen Hx Familial Dysautonomia: No (07/27/2016 12:26:Julia Allen [facility]) Gen Hx Sickle Cell Disease/Trait: No (07/27/2016 12:26:Julia Allen [facility]) Gen Hx Hemophilia/Blood Disorder: No (07/27/2016 12:26:Julia Allen [facility]) Gen Hx Muscular Dystrophy: No (07/27/2016 12:26:Julia Allen [facility]) Gen Hx Cystic Fibrosis: No (07/27/2016 12:26:Julia Allen [facility]) Gen Hx Huntingtons Chorea: No (07/27/2016 12:26:Julia Allen [facility]) Gen Hx Mental Retardation/Autism: No (07/27/2016 12:26:Julia Allen [facility]) Gen Hx Tested for Fragile X: No (07/27/2016 12:26:Julia Allen [facility]) Gen Hx Other Inher/Chromosomal: No (07/27/2016 12:26:Julia Allen [facility]) Gen Hx Maternal Metabolic DO: No (07/27/2016 12:26:Julia Allen [facility]) Gen Hx Pt Father or FOB Defect: No (07/27/2016 12:26:Julia Allen [facility]) Gen Hx Other Genetic History: No (07/27/2016 12:26:Julia Allen [facility]) Gen Hx Drugs/Meds since LMP: No (07/27/2016 12:26:Julia Allen [facility])
[2016-08-16] MEDS: IBUPROFEN 800 MG TABLET PO SCH (05:22)
--- NOTE | 2016-08-16 06:00 | L&D Current Admission ---
Current Admit Datetime Report Generated by CPN: 08/16/2016 06:00 ADMISSION INFORMATION Chief Complaint: Scheduled Induction of Labor (08/14/2016 10:33:Elsie Ortiz RN)
--- NOTE | 2016-08-16 06:00 | L&D General Admission ---
General Admit Datetime Report Generated by CPN: 08/16/2016 06:00 INFORMATION Patient Age: 31 (07/27/2016 11:30:QS system process) EDC: 08/21/2016 00:00 (07/27/2016 12:26:ALEJANDRO Bundy) : 3 (07/27/2016 12:26:ALEJANDRO Bundy) Para: 2 (07/27/2016 12:26:ALEJANDRO Bundy) Term: 1 (07/27/2016 12:26:ALEJANDRO Bundy) : 1 (07/27/2016 12:26:ALEJANDRO Bundy) Spontaneous Abortions: 0 (07/27/2016 12:26:ALEJANDRO Bundy) Induced Abortions: 0 (07/27/2016 12:26:ALEJANDRO Bundy) Livin (07/27/2016 12:26:ALEJANDRO Bundy) Cesareans: 0 (07/27/2016 12:26:ALEJANDRO Bundy) VBACs: 0 (07/27/2016 12:26:ALEJANDRO Bundy) Ectopic: 0 (07/27/2016 12:26:[facility], [facility]) Multiple Births: 0 (07/27/2016 12:26:[facility]) Baby, Number in Womb: 1 (07/27/2016 12:26:[facility]) CARE Primary Video News Editor[facility] (07/27/2016 12:26:Julia Allen [facility]) Month of 1st Visit: December (07/27/2016 12:26:Julia [place] [facility]) Adequate Care: Yes (07/27/2016 12:26:Julia [place] [facility]) Prepregnancy Weight (lb): 178 [facility]2016 [facility] Prepregnancy Weight (kg): 80.9 (07/27/2016 12:26:QS system process) Height (in): 57 (07/31/2016 14:28:QS system process) ALLERGIES Medication Allergy: Yes (07/27/2016 12:26:Julia Allen [facility]) Medication Allergies: Sulfa (Sulfonamide Antibiotics) (07/31/2016) (07/31/2016 14:28:QS system process) Latex Allergy: No Latex Allergies (07/27/2016 12:26:Julia [place] [facility]) COMMUNICATION Primary Language: Yemeni (07/27/2016 12:26:Julia Allen, [facility]) Medical Tx Preferred Language: Yemeni (07/27/2016 12:26:Julia Allen, [facility]) Communication Barrier(s): None (07/27/2016 12:26:Julia Allen, [facility]) DEMOGRAPHICS Address: [address], [address] [place] [id number] (07/27/2016 11:30:QS system process) Zipcode: [address] (07/27/2016 11:30:QS system process) Home (07/27/2016 11:30:QS system process) SSN: [id number] (07/27/2016 11:30:QS system process) Next of Kin Name: SUZAN ZHU (07/27/2016 11:30:QS system process) Next of Kin (07/27/2016 11:30:QS system process) Next of Kin Relationship: SPO (07/27/2016 11:30:QS system process) Date of : 1985 (07/27/2016 11:30:QS system process) Marital Status: (07/27/2016 11:30:QS system process) Sex: Female (07/27/2016 11:30:QS system process) Occupation: Homemaker (07/27/2016 12:26:ALEJANDRO Bundy) Race: (07/27/2016 11:30:QS system process) Ethnicity: Non- or (07/27/2016 11:30:QS system process) Oriental Orthodox: None (07/31/2016 14:08:QS system process) Education: 12 (07/27/2016 12:26:ALEJANDRO Bundy) FOB Involved: Yes (07/27/2016 12:26:ALEJANDRO Bundy) Father of Baby Name: Suzan Zhu (07/27/2016 12:26:ALEJANDRO Bundy) DRUG AND ALCOHOL USE Alcohol: No (07/27/2016 12:26:ALEJANDRO Bundy) Cigarettes: Former Smoker. [id number] (07/27/2016 12:26:ALEJANDRO Bundy) Cigarette Comments: quit three years ago (07/27/2016 12:26:ALEJANDRO Bundy) Marijuana: No (07/27/2016 12:26:ALEJANDRO Bundy) Cocaine: No (07/27/2016 12:26:ALEJANDRO Bundy) Other Illicit Drugs: No (07/27/2016 12:26:Julia Camp, [facility]) VACCINE HISTORY Influenza Vaccine: Yes (07/27/2016 12:26:Julia Camp, [facility]) Pneumococcal Vaccine: No (07/27/2016 12:26:Julia Camp, [facility]) Tetanus Vaccine: Yes (07/27/2016 12:26:Julia Camp, [facility]) Tetanus Date: 2014 (07/27/2016 12:26:Julia [place], [facility]) Tdap Vaccine: Yes (07/27/2016 12:26:Julia [place], [facility]) Tdap Date: 2014 (07/27/2016 12:26:[facility], [facility]) Hepatitis B Vaccine: Uncertain (07/27/2016 12:26:Julia [place], [facility]) Electronics Test Engineer: [facility] (07/27/2016 12:26:Julia Camp, [facility]) Feeding Preference: Breast (07/27/2016 12:26:Julia Camp, [facility]) Benefit of Breast Feed Discussed: Yes (07/27/2016 12:26:ALEJANDRO Bundy) Circumcision: N/A (07/27/2016 12:26:ALEJANDRO Bundy) Classes Attended: No (07/27/2016 12:26:ALEJANDRO Bundy) Tubal Ligation: Yes (07/27/2016 12:26:ALEJANDRO Bundy) Tubal Authorization Signed: Yes (07/27/2016 12:26:ALEJANDRO Bundy) Consent: N/A (07/27/2016 12:26:ALEJANDRO Bundy) Consent Signed: N/A (07/27/2016 12:26:ALEJANDRO Bundy) Pain Management Plans: Epidural (07/27/2016 12:26:ALEJANDRO Bundy) Plans for Labor and Delivery: None (07/27/2016 12:26:ALEJANDRO Bundy) Support Person: Jameel Zhu (07/27/2016 12:26:ALEJANDRO Bundy) Support Person Relationship: (07/27/2016 12:26:ALEJANDRO Bundy) Cultural/Spritual Practice: No (07/27/2016 12:26:ALEJANDRO Bundy) Spir/Cult Dietary Needs: No (07/27/2016 12:26:ALEJANDRO Bundy) LIVING SITUATION/DISCHARGE PLAN Living Arrangements: Apartment (07/27/2016 12:26:ALEJANDRO Bundy) Adequate Access to:: Electric; Heat; Refrigeration; Plumbing/Running water; Phone; Transportation (07/27/2016 12:26:ALEJANDRO Bundy) WIC Program: Needs referral (07/27/2016 12:26:ALEJANDRO Bundy) Discharge Chronic Care Nurse Person: Jameel Zhu (07/27/2016 12:26:ALEJANDRO Bundy) Person to Help after Discharge: Jameel Zhu (07/27/2016 12:26:ALEJANDRO Bundy) Currently Using Commun Resources: Yes (07/27/2016 12:26:ALEJANDRO Bundy) Specify Current Resource Used: medicaid, food stamps (07/27/2016 12:26:ALEJANDRO Bundy) Outside Agency/Cow Washer: No (07/27/2016 12:26:ALEJANDRO Bundy) Car Seat for Discharge: Yes (07/27/2016 12:26:ALEJANDRO Bundy) Adoption Requested: No (07/27/2016 12:26:ALEJANDRO Bundy) Pt Contact w/infant Post : N/A (07/27/2016 12:26:ALEJANDRO Bundy) LABS Blood Type: O Positive (07/27/2016 12:26:Elsie Ortiz RN) Hemoglobin: 8.9 L (08/15/2016 07:33:QS system process) Hematocrit: 27.2 L (08/15/2016 07:33:QS system process) MCV: 80 (08/15/2016 07:33:QS system process) Group Beta Strep: NEGATIVE (Annotations: Data stored by CPColleen on behalf of user) (07/27/2016 12:26:Elsie Ortiz RN) Gonorrhea: Negative (07/27/2016 12:26:Elsie Ortiz RN) Chlamydia: Negative (07/27/2016 12:26:Elsie Ortiz RN) RPR/VDRL: Nonreactive (07/27/2016 12:26:Elsie Ortiz RN) HIV Exposure Test: Negative (07/27/2016 12:26:Elsie Ortiz RN) Hepatitis B: Negative (07/27/2016 12:26:Elsie Ortiz RN) Rubella: Immune (07/27/2016 12:26:Elsie Ortiz RN) OB/PREVIOUS HISTORY Previous Procedures: Ultrasound; NST; BPP (07/27/2016 12:26:ALEJANDRO Bundy) Current Procedures: Ultrasound; NST; BPP (07/27/2016 12:26:ALEJANDRO Bundy) History of Previous : No (07/27/2016 12:26:ALEJANDRO Bundy) History of Gestational Diabetes: Yes (07/27/2016 12:26:ALEJANDRO Bundy) History of PIH: Yes (07/27/2016 12:26:ALEJANDRO Bundy) History of Incompetent Cervix: No (07/27/2016 12:26:ALEJANDRO Bundy) History of Placenta Previa/Abrup: No (07/27/2016 12:26:ALEJANDRO Bundy) History of Macrosomia: No (07/27/2016 12:26:ALEJANDRO Bundy) History of IUGR: No (07/27/2016 12:26:ALEJANDRO Bundy) History of Hemorrhage: No (07/27/2016 12:26:ALEJANDRO Bundy) History of Loss/Stillborn: No (07/27/2016 12:26:ALEJANDRO Bundy) History of : No (07/27/2016 12:26:ALEJANDRO Bundy) History of D (Rh) Sensitization: No (07/27/2016 12::ALEJANDRO Bundy) History Recurrent Loss/Stillborn: No (07/27/2016 12:26:ALEJANDRO Bundy) History Depression/PP Depression: No (07/27/2016 12:26:ALEJANDRO Bundy) History of Uterine Anomaly/MARQUIS: No (07/27/2016 12:26:ALEJANDRO Bundy) History of Infertility: No (07/27/2016 12::ALEJANDRO Bundy) History of ART Treatment: No (07/27/2016 12::ALEJANDRO Bundy) History of MARQUIS: No (07/27/2016 12::ALEJANDRO Bundy) Comments Obstetrical History: G-1 and G2 del 37 weeks for preeclampsia G3- GDM on insulin (07/27/2016 12:26:ALEJANDRO Bundy) MEDICAL HISTORY Med Hx Diabetes: Yes (07/27/2016 12:26:ALEJANDRO Bundy) Diabetes Type: Gestational Diabetes (07/27/2016 12::ALEJANDRO Bundy) Med Hx Hypertension: No (07/27/2016 12:26:ALEJANDRO Bundy) Med Hx Heart Disease: No (07/27/2016 12:26:ALEJANDRO Bundy) Med Hx Autoimmune Disorder: No (07/27/2016 12:26:ALEJANDRO Bundy) Med Hx Kidney Disease/UTI: No (07/27/2016 12:26:ALEJANDRO Bundy) Med Hx Neurologic/Epilepsy: No (07/27/2016 12:26:ALEJANDRO Bundy) Med Hx Psychiatric Disorders: No (07/27/2016 12:26:ALEJANDRO Bundy) Med Hx Hepatitis/Liver Disease: No (07/27/2016 12:26:ALEJANDRO Bundy) Med Hx Varicosities/Phlebitis: No (07/27/2016 12:26:ALEJANDRO Bundy) Med Hx Thyroid Dysfunction: No (07/27/2016 12:26:ALEJANDRO Bundy) Med Hx Trauma/Violence: No (07/27/2016 12:26:ALEJANDRO Bundy) Med Hx Blood Transfusion: No (07/27/2016 12:26:ALEJANDRO Bundy) Med Hx Pulmonary (Asthma,TB): No (07/27/2016 12:26:ALEJANDRO Bundy) Med Hx Breast: No (07/27/2016 12:26:ALEJANDRO Bundy) Med Hx CAGE CASHIER Surgery: No (07/27/2016 12:26:ALEJANDRO Bundy) Med Hx Hospitalization/Surgery: Yes (07/27/2016 12:26:Elsie Ortiz RN) Med Hx Anesthetic Complications: No (07/27/2016 12:26:ALEJANDRO Bundy) Med Hx Abnormal Pap Smear: No (07/27/2016 12:26:ALEJANDRO Bundy) Other Medical Diseases: Yes (07/27/2016 12:26:ALEJANDRO Bundy) Med Hx Significant Family Hx: No (07/27/2016 12:26:ALEJANDRO Bundy) Details of Med/Surg Hx: possible slight heart murmur , childbirth, tubes placed in ears bilaterally age 10 ( received abx prior to surgery, for heart murmur) (07/27/2016 12:26:Elsie Ortiz RN) INFECTIOUS HISTORY Inf Hx Gonorrhea: No (07/27/2016 12:26:[facility]) Inf Hx Chlamydia: No (07/27/2016 12:26:[facility]) Inf Hx Syphilis: No (07/27/2016 12:26:[facility]) Inf Hx HIV/AIDS: No (07/27/2016 12:26:[facility]) Inf Hx Human Papilloma Virus: No (07/27/2016 12::[facility]) Inf Hx Pt/Partner Genital Herpes: No (07/27/2016 12:26:[facility]) Inf Hx Tuberculosis/Exposure: No (07/27/2016 12::[facility]) Inf Hx Hepatitis B,C: No (07/27/2016 12:26:[facility]) Inf Hx Rash or Viral Illness: No (07/27/2016 12:26:[facility]) GENETIC HISTORY Gen Hx Age >=35 at DANIEL: No (07/27/2016 12:26:[facility]) Gen Hx Thalassemia: No (07/27/2016 12:26:[facility]) Gen Hx Congenital Heart Defect: No (07/27/2016 12:26:[facility]) Gen Hx Neural Tube Defect: No (07/27/2016 12:26:[facility]) Gen Hx Down's Syndrome: No (07/27/2016 12:26:Julia Allen [facility]) Gen Hx Kingston-Sachs: No (07/27/2016 12:26:Julia Allen [facility]) Gen Hx Pricila: No (07/27/2016 12:26:Julia Allen [facility]) Gen Hx Familial Dysautonomia: No (07/27/2016 12:26:Julia Allen [facility]) Gen Hx Sickle Cell Disease/Trait: No (07/27/2016 12:26:Julia Allen [facility]) Gen Hx Hemophilia/Blood Disorder: No (07/27/2016 12:26:Julia Allen [facility]) Gen Hx Muscular Dystrophy: No (07/27/2016 12:26:Julia Allen [facility]) Gen Hx Cystic Fibrosis: No (07/27/2016 12:26:Julia Allen [facility]) Gen Hx Huntingtons Chorea: No (07/27/2016 12:26:Julia Allen [facility]) Gen Hx Mental Retardation/Autism: No (07/27/2016 12:26:Julia Allen [facility]) Gen Hx Tested for Fragile X: No (07/27/2016 12:26:Julia Allen [facility]) Gen Hx Other Inher/Chromosomal: No (07/27/2016 12:26:Julia Allen [facility]) Gen Hx Maternal Metabolic DO: No (07/27/2016 12:26:Julia Allen [facility]) Gen Hx Pt Father or FOB Defect: No (07/27/2016 12:26:Julia Allen [facility]) Gen Hx Other Genetic History: No (07/27/2016 12:26:Julia Allen [facility]) Gen Hx Drugs/Meds since LMP: No (07/27/2016 12:26:Julia Allen [facility])
--- NOTE | 2016-08-16 06:15 | L&D Care Plan ---
LD CARE PLANS Datetime Report Generated by CPN: 08/16/2016 06:15 Datetime: 08/14/2016 10:43 Pain State: Actual (Elsie Ortiz RN) Related To: Labor and Delivery Process; Complication(s) of ; Treatment and Procedures; Post (Elsie Ortiz RN) Goal(s): Patients Pain will be Assessed and Managed; Patient will Verbalize Adequate Relief of Pain or the Ability to Diana with Current Pain (Elsie Ortiz RN) Interventions: Assess Pain Severity on Scale of 0 (None) to 5 (Severe); Assess Type, Location and Intensity of Pain Each Time Client Reports Discomfort and Notify Provider if Unusal Pain Develops; Encourage Proper Breathing and Relaxation Techniques; Offer Alternatives Such as Repositioning, Calm Environment, Massages, Diversional Activities, Ice Pack, Splinting, and Ambulation; Administer Analgesics as Ordered; Assist with Epidural Placement as Appropriate; Evaluate Therapeutic Effectiveness of Medication and Treatments (Elsie Ortiz RN) Outcome: Patient will Report Absence or Relief of Pain Consistent with Established Pain Goal (Elsie Ortiz RN) Status: Ongoing (Elsie Ortiz RN) Outcome: Patient will have a Decrease in Signs and Symptoms of Discomfort (Elsie Ortiz RN) Status: Ongoing (Elsie Ortiz RN) Outcome: Pain will be Controlled During Procedures (Elsie Ortiz RN) Status: Ongoing (Elsie Ortiz RN) Anxiety State: Risk For (Elsie Ortiz RN) Related To: Labor and Delivery Process; Perceived or Actual Threat to ; Fear of Unknown; Situational Crisis; Significant Life Event (Elsie Ortiz RN) Goal(s): Patient will have Decreased Anxiety and be able to Function at Acceptable Levels (Elsie Ortiz RN) Interventions: Assess Verbal and Nonverbal Behavioral Indicators of Anxiety; Assist Patient to Identify and Verbalize Symptoms of Anxiety; Identify and Demonstrate Techniques to Control Anxiety; Assist Patient with Coping Mechanisms to Manage Anxiety; Provide Theraputic Touch for the Patient; Explain to Patient, Using a Calm Reassuring Approach and Nonmedical Terms, All Activities, Procedures, and Concerns; Instruct Patient and Family about Post Discharge Care, Limitations, Symptoms to Report and Resources Available (Elsie Ortiz RN) Outcome: Patient will Identify, Verbalize and Demonstrate Techniques to Control Anxiety (Elsie Ortiz RN) Status: Ongoing (Elsie Ortiz RN) Outcome: Patient's Posture, Facial Expressions, Gestures and Activity Level will Reflect Decreased Anxiety (Elsie Ortiz RN) Status: Ongoing (Elsie Ortiz RN) Outcome: Patient will Verbalize a Sense of Control and/or Acceptance of the Situation (Elsie Ortiz RN) Status: Ongoing (Elsie Ortiz RN) Outcome: Patient will Identify and Utilize Support Person (Elsie Ortiz RN) Status: Ongoing (Elsie Ortiz RN) Knowledge Deficit State: Risk For (Elsie Ortiz RN) Related To: Labor and Delivery Process; Treatment and Procedures; Impending Alterations in Family Dynamics; Feeding and Infant Care (Elsie Ortiz RN) Goal(s): Patient will Accurately Verbalize Understanding of Plan of Care and Treatment; Patient and Family will Accurately Verbalize Understanding of the Disease Process (Elsie Ortiz RN) Interventions: Assess Motivation and Willingness of Patient/Family to Learn; Assess Preferred Learning Mode: One to One Instruction, Reading, Videos, Group Discussion or Demonstration; Assess Barriers to Learning: Pain, Emotional State, Language Barrier, Cognitive Impairment, Visual or Hearing Deficits; Assess Patient and Family Knowledge of Disease Process, Medications and Treatment; Discuss Therapy and/or Treatment Options, Describe Rationale Behind Management, Therapy and Treatment Recommendations; Instruct Patient and Family on Signs and Symptoms to Report; Instruct Patient and Family on Medication Effects and Side Effects; Provide Appropriate and Timely Education Using Multiple Techniques; Provide Patient and Family with Support Group Information and Resources; Give Clear and Thorough Explanations and Demonstrations (Elsie Ortiz RN) Outcome: Patient and Family will Verbalize Understanding of Condition, Treatment and Signs and Symptoms to Report (Elsie Ortiz RN) Status: Ongoing (Elsie Ortiz RN) Outcome: Patient will Identify Perceived Learning Needs and Express Motivation to Learn (Elsie Ortiz RN) Status: Ongoing (Elsie Ortiz RN) Outcome: Patient will Verbalize Understanding of Desired Content, and/or Performs Desired Skill Prior to Discharge (Elsie Ortiz RN) Status: Ongoing (Elsie Ortiz RN) Infection State: Risk For (Elsie Ortiz RN) Related To: Prolonged Labor or Induction; Premature/Prolonged Rupture of Membranes; Invasive Procedures (Elsie Ortiz RN) Goal(s): The Patient will be Free of Infection, Vital Signs Stable and Lab Work within Normal Parameters (Elsie Ortiz RN) Interventions: Instruct and Reinforce Proper Handwashing, Hygiene, and Care Techniques to Patient and Family; Monitor Vital Signs; Monitor Patient for the Following Signs of Infection: Fever, Abdominal Tenderness, Unusual Discharge; Monitor Aminiotic Fluid, Urine and Lochia for Color and Odor; Observe Wounds, Incisions and Invasive Line Sites for Redness, Drainage and Edema; Assess IV Sites per Hospital Policy; Monitor Lab and Test Results and Notify Provider of Abnormal Findings; Assess Nutritional Status and Promote Good Nutrition (Elsie Ortzi RN) Outcome: Patient will Remain Free of Infection (Elsie Ortiz RN) Status: Ongoing (Elsie Ortiz RN) Outcome: Infection will be Recognized Early to Allow for Prompt Treatment (Elsie Ortiz RN) Status: Ongoing (Elsie Ortiz RN) Outcome: Patient will have Vital Signs Within Expected Range (Elsie Ortiz RN) Status: Ongoing (Elsie Ortiz RN) Injury State: Risk For (Elsie Ortiz RN) Related To: Labor and Delivery Process; Anesthesia; Risk to Status; Uteroplacental Perfusion; Decreased Mobility; Hemorrhage, Placenta Previa and or Placental Abruption (Elsie Ortiz RN) Goal(s): Patient will Remain Free from Injury (Elsie Ortiz RN) Interventions: Monitoring as per Hospital Protocol; Assess Neurological Status; Perform Risk Assessment of Patients with Induction and ; Perform Fall Risk Assessment and Prevention per Hospital Protocol; Perform DVT Risk Assessment and Prophylaxis per Hospital Protocol; Ensure that Oxygen, Suction, and Resuscitation Medications and Equipment are Readily Available; Confirm Patient ID Prior to Procedure(s) and Medication Administration per Hospital Policy (Elsie Oritz RN) Outcome: Successful Fall Risk Prevention (Elsie Ortiz RN) Status: Ongoing (Elsie Ortiz RN) Outcome: Patient will Deliver Infant without Adverse Sequela (Elsie Ortiz RN) Status: Ongoing (Elsie Ortiz RN) Outcome: Patient's Neurological Status will Remain Stable (Elsie Ortiz RN) Status: Ongoing (Elsie Ortiz RN) Impaired Skin Integrity State: Risk For (Elsie Ortiz RN) Related To: Vaginal Delivery; Altered Tissue Integrity; Invasive Procedures (Elsie Ortiz RN) Goal(s): Patient will Maintain Optimal Skin Integrity, Free of Breakdown, Injury or Infection (Elsie Ortiz RN) Interventions: Complete Screening for Pressure Ulcer Risk and Initiate Protocol per Hospital Policy; Monitor Site of Skin Impairment for Color Changes, Redness, Swelling, Warmth, Pain or Other Signs of Infection; Encourage and Assist with Position Changes; Monitor Patient's Mobility Status; Provide Adequate Nutrition and Fluids; Teach Patient Appropriate Hygienic Care; Teach Patient/Family Skin Care Management (Elsie Ortiz, TAWANA) Outcome: Patient will not have Evidence of Injury Such as Skin Breakdown, Scrapes, Cuts, or Bruising (Elsie Ortiz RN) Status: Ongoing (Elsie Ortiz RN) Outcome: Patient will Report Any Altered Sensation or Pain at Site of Skin Impairment (Elsie Ortiz RN) Status: Ongoing (Elsie Ortiz RN) Outcome: Patients Incisions and Wounds will be without Signs or Symptoms of Infection (Elsie Ortiz, RN) Status: Ongoing (Elsie Ortiz, TAWANA) Outcome: Patient will Demonstrate Understanding of Plan to Heal Skin and Prevent Reinjury and Verbalize Risk Factors (Elsie Ortiz, TAWANA) Status: Ongoing (Elsie Ortiz, TAWANA) Parenting Impaired State: Risk For (Elsie Ortiz RN) Related To: Compromised Health Status (Elsie Ortiz RN) Goal(s): Parents will Demonstrate Progressive Parenting Behaviors (Elsie Ortiz RN) Interventions: Assess for Adequacy of Support Systems; Observe and Encourage Patient/Family Attachment and Bonding Activities and Provide Feedback; Assess Patient/Family Understanding of 's Condition and Provide Accurate Information About Condition, Treatment and Prognosis; Assess for Patient/Family Behaviors that May Indicate Lack of Attachment; Provide a Safe Non-judgmental Environment for Patient/Family to Discuss Concerns; Promote Patient/Family Cohesiveness by Encouraging Discussion and Problem Solving; Integration Technician Referral as Indicated (Elsie Ortiz RN) Outcome: Patient/Family will Discuss Their Fears and the Possibility of Difficulties with Parenting (Elsie Ortiz RN) Status: Ongoing (Elsie Ortiz RN) Outcome: Patient/Family will Exhibit Appropriate Bonding Behaviors with Infant (Elsie Ortiz RN) Status: Ongoing (Elsie Ortiz RN) Outcome: Patient/Family will Verbalize Positive Feelings and Demonstrate Affection and Caring Toward Infant (Elsie Ortiz RN) Status: Ongoing (Elsie Ortiz RN) Nutrition State: Not Applicable (Elsie Ortiz RN) Related To: ; (Elsie Ortiz RN) Goal(s): Patient will have an Intake of Nutrients Sufficient to Meet Metabolic Needs (Elsie Ortiz RN) Interventions: Nutritional Screening and Assessment per Hospital Policy; Consult Product Specialist for Further Assessment and Recommendations Regarding Food Preferences and Nutritional Support; Allow Patient to Plan and Order Diet when Possible; Monitor Laboratory Values That Indicate Nutritional Well-being; Consult Remote Medical Coder for Nutritional Support Regarding Requirements; Document Actual Weight Initially and Weekly (Do Not Estimate); Encourage Patient Participation in Maintaining a Food Log as Indicated; Educate Patient on the Importance of Maintaining an Adequate Caloric Intake (Elsie Ortiz RN) Outcome: Patient will Receive Adequate Calories and Fluid Volume to Meet Metabolic Needs (Elsie Ortiz RN) Status: Ongoing (Elsie Ortiz RN) Outcome: Patient will Select Foods or Meals that Support Adequate Nutrition (Elsie Ortiz RN) Status: Ongoing (Elsie Ortiz RN) Grieving State: Not Applicable (Elsie Ortiz RN) Additional Care Plan State: Not Applicable (Elsie Ortiz RN)
[2016-08-16 08:35] VITALS: BP 109/54
[2016-08-16] MEDS: FERROUS SULFATE 325 MG TABLET PO SCH (10:34)
[2016-08-16] MEDS: PRENATAL VITAMIN W-O CA NO5/FE FUMARATE/FA CAPSULE PO SCH (10:34)
[2016-08-16] MEDS: DOCUSATE SODIUM 100 MG CAPSULE PO SCH (10:35)
[2016-08-16] MEDS: SENNOSIDES/DOCUSATE 8.6-50 MG 1 EACH TABLET PO SCH (10:35)
--- NOTE | 2016-08-16 10:50 | PDOC PROGRESS REPORT ---
Subjective-OB Subjective: Post Delivery Day: 31 year old. Denies any needs at this time. Ready to go home. Physical Exam (OB) Vital Signs: Temp Pulse Resp BP Pulse Ox 97.9 F 92 16 109/54 L 98 08/16/16 08:08 08/16/16 08:08 08/16/16 08:08 08/16/16 08:03 08/16/16 08:08 Intake & Output 08/15/16 08/16/16 08/17/16 06:59 06:59 06:59 Intake Total 500 Balance 500 - Lochia Lochia Amount: Scant < 10 ml Lochia Color: Rubra/Red - Abdomen Description: Soft, Round Hernia Present: No Bowel Sounds: Normoactive Flatus Presence: Present Stool: Yes Fundal Description: Firm, Midline Fundal Height: u/u - u/2 Objective-Diagnostic Laboratory: 08/15/16 07:33
--- NOTE | 2016-08-16 10:58 | PDOC DISCHARGE SUMMARY ---
Final Diagnosis Discharge Date: 08/16/16 - Final Diagnosis (1) Delivery normal Is this a current diagnosis for this admission?: Yes (2) GDM (gestational diabetes mellitus) Is this a current diagnosis for this admission?: Yes (3) Late onset antepartum care Is this a current diagnosis for this admission?: Yes (4) Is this a current diagnosis for this admission?: Yes Discharge Data - Discharge Medication Home Medications: Pnv95/Ferrous Fumarate/FA [ Formula Tablet] 1 tab PO DAILY 08/14/16 Ferrous Sulfate [Feosol 325 mg Tablet] 325 mg PO BID #60 tablet 08/16/16 Gestational Age: 39.0 wks Reason(s) for Admission: Induction of Labor Procedures: Ultrasound Intrapartum Procedure(s): Spontaneous Vaginal Delivery - Data Baby 1 Female at 1 minute: 9 at 5 minutes: 9 Weight: 3.147 kg Home with Mother: Yes Complications: No - Diagnosis Test Laboratory: Temp Pulse Resp BP Pulse Ox 97.9 F 92 16 109/54 L 98 08/16/16 08:08 08/16/16 08:08 08/16/16 08:08 08/16/16 08:03 08/16/16 08:08 08/14/16 08/14/16 08/15/16 10:05 10:46 07:33 RBC 3.95 3.41 L Hgb 10.4 L 8.9 L Hct 31.3 L 27.2 L Urine Opiates Screen NEGATIVE - Discharge information/Instructions Discharge Activity: Activity As Tolerated, Balance Activity w/Rest, No Lifting Over 10 Pounds, No Lifting/Push/Pulling, Non-Ambulatory Child, Pelvic Rest, Slowly Increase Activity, No tub bath Discharge Diet: Regular Disposition: HOME, SELF-CARE Follow up with: [facility] in: 4, Weeks
== END 2016-08-16 13:04 | disposition home or self-care (01) | DRG 775 ==
LOC: LR 09:49 → 2S 23:20
PROVIDERS: ADMIT Obstetrics & Gynecology; ATTEND Obstetrics & Gynecology
PROC: 10E0XZZ Delivery of Products of Conception, External Approach (ICD-10-PCS; principal; 2016-08-14)
PROC: 3E0P7GC Introduction of Other Therapeutic Substance into Female Reproductive, Via Natural or Artificial Opening (ICD-10-PCS; 2016-08-14)
PROC: 10907ZC Drainage of Amniotic Fluid, Therapeutic from Products of Conception, Via Natural or Artificial Opening (ICD-10-PCS; 2016-08-14)
PROC: 4A1HXCZ Monitoring of Products of Conception, Cardiac Rate, External Approach (ICD-10-PCS; 2016-08-14)
DX: O24.424 Gestational diabetes mellitus in childbirth, insulin controlled (principal); O76 Abnormality in fetal heart rate and rhythm complicating labor and delivery; O69.81X0 Labor and delivery complicated by cord around neck, without compression, not applicable or unspecified; Z88.2 Allergy status to sulfonamides; Z87.891 Personal history of nicotine dependence; Z3A.39 39 weeks gestation of pregnancy; Z37.0 Single live birth
CPT/HCPCS: 36415; 80307; 81005; 82962; 85025; 85027; 86592; 86850; 86900; 86901; 90715; 94760; J2370; J2590; J3010; J3490

== ENCOUNTER 2016-10-08 07:32 | Day surgery (SDC) | payer MEDICAID ==
[2016-10-02 13:02] LABS: HEMATOCRIT 36.3 % (36.0-47.0); HEMOGLOBIN 11.5 g/dL (12.0-15.5); HGB HCT DIFFERENCE -1.8; MEAN CORPUSCULAR HEMOGLOBIN 26.3 pg (27.0-33.4); MEAN CORPUSCULAR HGB CONC 31.8 g/dL (32.0-36.0); MEAN CORPUSCULAR VOLUME 83 fl (80-97); RED BLOOD COUNT 4.38 10^6/uL (3.72-5.28); RED CELL DISTRIBUTION WIDTH 16.7 % (11.5-14.0); WHITE BLOOD COUNT 6.9 10^3/uL (4.0-10.5)
[2016-10-02 13:12] LABS: APPEARANCE,URINE CLEAR; BILIRUBIN,URINE NEGATIVE (NEGATIVE); GLUCOSE, URINE NEGATIVE (NEGATIVE); KETONES,URINE NEGATIVE (NEGATIVE); LEUKOCYTE ESTERASE,URINE NEGATIVE (NEGATIVE); NITRITE,URINE NEGATIVE (NEGATIVE); PROTEIN,URINE NEGATIVE (NEGATIVE); UROBILINOGEN,URINE NEGATIVE mg/dL (<2.0)
[~2016-10-08 07:32] MED LIST: CEFAZOLIN 2 GM/D5W RTU 2 GM/50 ML RTUPB IV PRN; LACTATED RINGERS 1000 ML IV PRN; LIDOCAINE 0.5% INJ-PF (5 MG/ML) 50 ML SDV SUBCUT PRN
[2016-10-08] MEDS ORDERED: ACETAMINOPHEN 100 ML IV ONE (08:49)
[2016-10-08] MEDS ORDERED: FENTANYL CITRATE INJ/PF 250 MCG/5 ML AMPULE ONE (08:49)
[2016-10-08] MEDS ORDERED: PROPOFOL INJ 200 MG/20 ML VIAL IV ONE (08:49)
[2016-10-08] MEDS ORDERED: MIDAZOLAM 2 MG/2 ML INJ ONE (08:49)
[2016-10-08] MEDS ORDERED: ALBUTEROL SULFATE 0.083% NEB 2.5 MG/3 ML AMPUL NEB ONE ×3 (08:52→16:30)
[2016-10-08] MEDS: LIDOCAINE 2%/EPINEPHRINE INJ 20 ML VIAL ONE ×2 (09:49→10:05)
[2016-10-08] MEDS ORDERED: MORPHINE SULFATE 10 MG/ML INJ IV PRN (09:51)
[2016-10-08] MEDS ORDERED: OXYCODONE-ACETAMINOPHEN 5-325 MG TABLET PO PRN ×4 (09:51→11:37)
[2016-10-08] MEDS ORDERED: FENTANYL CITRATE INJ/PF 100 MCG/2 ML AMPUL IV PRN ×3 (09:51)
[2016-10-08] MEDS ORDERED: PROMETHAZINE HCL INJ 25 MG/1 ML VIAL IV PRN ×2 (09:51)
[2016-10-08] MEDS ORDERED: MEPERIDINE HCL/PF INJ 25 MG/1 ML DISP.SYRIN IV PRN (09:51)
[2016-10-08] MEDS ORDERED: DIPHENHYDRAMINE HCL 50 MG/ML VIAL IV PRN (09:51)
[2016-10-08] MEDS ORDERED: ONDANSETRON HCL INJ/PF 4 MG/2 ML SDV IV PRN ×2 (09:51→14:24)
[2016-10-08] MEDS: BUPIVACAINE HCL 0.25 % INJ/PF (2.5 MG/1 ML) 30 ML VIAL ONE ×2 (09:52→10:05)
[2016-10-08] MEDS ORDERED: NALOXONE HCL INJ/PF 0.4 MG/1 ML SDV ONE ×2 (10:52→10:54)
[2016-10-08] MEDS ORDERED: GLYCOPYRROLATE INJ 0.4 MG/2 ML VIAL ONE (11:52)
[2016-10-08] MEDS ORDERED: DEXAMETHASONE SOD PHOSPHATE INJ 4 MG/1 ML VIAL ONE (11:52)
[2016-10-08] MEDS ORDERED: ONDANSETRON HCL INJ/PF 4 MG/2 ML SDV ONE (11:52)
[2016-10-08] MEDS ORDERED: ROCURONIUM BROMIDE INJ 50 MG/5 ML VIAL IV ONE (11:52)
[2016-10-08] MEDS ORDERED: METOCLOPRAMIDE HCL INJ/PF 10 MG/2 ML SDV ONE (11:52)
[2016-10-08] MEDS ORDERED: KETOROLAC TROMETHAMINE 60 MG/2 ML SDV ONE (11:52)
[2016-10-08] MEDS ORDERED: NEOSTIGMINE METHYLSULFATE 10 MG/10 ML VIAL ONE (11:52)
[2016-10-08] MEDS ORDERED: SUCCINYLCHOLINE CHLORIDE INJ 200 MG/10 ML VIAL ONE (11:52)
[2016-10-08] MEDS ORDERED: LIDOCAINE 2% INJ-PF (20 MG/ML) 10 ML AMPUL ONE (11:52)
[2016-10-08] MEDS ORDERED: HYDROMORPHONE HCL INJ/PF 2 MG/ML AMPULE IV PRN (12:00)
[2016-10-08] MEDS ORDERED: IBUPROFEN 800 MG TABLET PO PRN (12:00)
[2016-10-08] MEDS ORDERED: ONDANSETRON 4 MG TAB.RAPDIS PO PRN (14:24)
[2016-10-08 17:25] VITALS: BP 117/62
--- NOTE | 2016-11-09 23:58 | Operative Report ---
Operative Report DATE OF SURGERY: 10/08/16 PREOPERATIVE DIAGNOSIS: Undesired Fertility, Multiparity POSTOPERATIVE DIAGNOSIS: RANJIT OPERATION: EUA, Paracervical Block, Operative Laparoscopy with Bilateral Partial Salpingectomy SURGEON: ANGLE CRUZ ANESTHESIA: GA TISSUE REMOVED OR ALTERED: Partial Bilateral Fallopian tubes COMPLICATIONS: none ESTIMATED BLOOD LOSS: Less than 10ml INTRAOPERATIVE FINDINGS: normal liver edge, normal appendix, normal bilateral fallopian tubes, normal ovaries, normal appearing uterus. PROCEDURE: Anesthesia: General Endotracheal tube Anesthesiologist: Robert Lawler MD, Carmen Ochoa CRNA Complications: None IV fluids: [1000ml] Urine output: [100ml clear urine] Indications: [31yo with undesired future fertility. She was counseled regarding contraceptive options and desires sterilization. The risks/benefits/ alternatives were reviewed and she desires to proceed with planned procedure.] Procedure: The patient was taken to the operating room where general anesthesia was obtained without difficulty. The patient was then examined under anesthesia with findings as noted above with a small anteverted uterus no adnexal masses. She was then placed in dorsal supine lithotomy position and prepped and draped in the normal sterile fashion. [place] speculum was then placed in the patient's vagina and the anterior lip of the cervix grasped with a single-tooth tenaculum. Paracervical block was performed in the usual fahsion. A Artsy uterine manipulator was then advanced into the uterus to provide a means of manipulation of the uterus. The speculum and tenaculum were then removed from the patient's cervix and vagina. Attention was then turned to the patient's abdomen where a 5 mm infraumbilical skin incision was then made. The Optiview trocar with 0 laparoscope was then advanced without difficulty under direct visualization with the Optiview trocar. This was performed while tenting the abdominal wall and these will fashion. Intraperitoneal placement was confirmed by the direct visualization. Pneumoperitoneum was then obtained with approximately 4 L carbon dioxide gas. Survey of the patient's abdomen and pelvis revealed findings as noted above. A second skin incision was then made approximately 3 cm superior 4 cm medial to the anterior superior iliac spine on the left and then a third skin incision was made approximately 3 cm superior to the lower incision. These incisions were made under direct visualization with the laparoscope. The second and third trochars were then advanced under direct visualization of the laparoscope at the sites. The right fallopian tube was then identified and followed out to the fimbriated end and the LigaSure device was used to clamp and cauterize and cut the mesosalpinx extending from the fimbriated end towards the cornua of the uterus thus removing the majority of the right fallopian tube. Attention was then turned to the left adnexa at which time the left fallopian tube was identified and followed out to the fimbriated end. LigaSure device was then used to clamp and cauterize and cut the mesosalpinx extending from the fimbriated end of the left fallopian tube to the uterine cornual thus removing the majority of the left fallopian tube. The fallopian tubes were removed easily through the trocar. All operative sites were visualized and noted to be hemostatic. The 2 additional trochars on the patient's left greater than removed under direct visualization. The 5 mm trocar was then removed after abdominal insufflation was removed. The fascia at the 5 mm trocar site was closed with 0 Vicryl on a UR 6 needle. The skin at all trocar sites were closed with 3-0 Monocryl in a subcuticular fashion with overlying Dermabond. 2 grams of Ancef were given prior to this procedure. After completion of skin closure of the trocar sites attention was then turned to the vagina where the [place] uterine manipulator was removed and the bivalve speculum was replaced. Silver nitrate was applied to the tenaculum sites for hemostasis and the speculum was removed. Sponge lap needle and instrument counts were correct 3. The patient tolerated the procedure well and was taken to the recovery area awake and in stable condition.
== END 2016-10-08 17:53 | disposition home or self-care (01) ==
LOC: OROUT 07:32 → 2S 12:31 → OROUT 17:53
PROVIDERS: ATTEND Student in an Organized Health Care Education/Training Program
PROC: 0UT74ZZ Resection of Bilateral Fallopian Tubes, Percutaneous Endoscopic Approach (ICD-10-PCS; principal; 2016-10-08 09:15)
DX: Z30.2 Encounter for sterilization (principal); N83.8 Other noninflammatory disorders of ovary, fallopian tube and broad ligament; N80.2 Endometriosis of fallopian tube; Z88.2 Allergy status to sulfonamides; Z87.891 Personal history of nicotine dependence
CPT/HCPCS: 36415; 85027; 81005; 81025 ×2; 83036; 88302 ×2; 94640; 58661; J2250; J3490 ×4; J1100; J1885; J3010; J2765; J2310; J0330; J2405; S0020; J2704; J0690; J0131; 840